=== PATIENT | female | born 1950 | race Caucasian/White ===

== ENCOUNTER → 2024-06-13 08:49 | Outpatient (REF) | payer OTHER, SELFPAY | LOC: RAD 08:49 | PROVIDERS: ATTENDING PHYSICIAN Internal Medicine Pulmonary Disease; FAMILY PHYSICIAN Family Medicine | DX: J43.9 Emphysema, unspecified (principal) | CPT/HCPCS: 71250 ==

== ENCOUNTER 2024-09-24 19:51 | Observation (INO) | payer OTHER, SELFPAY ==
[2024-09-24] VITALS (8 sets, daily range): BP systolic 104–157; BP diastolic 63–101; BMI 21.1; BMI 22.4
[2024-09-24 15:09] LABS: % Basophils 1.1 % (0-2); % Eosinophils 5.5 % (0-6); % Immature Granulocytes 0.4 % (0-0.5); % Lymphocytes 18.1 % (20.5-51.1); % Monocytes 10.4 % (1.7-9.3); % Neutrophils 64.5 % (42.2-75.2); Absolute Basophils 0.1 10^3/uL (0-0.2); Absolute Eosinophils 0.4 10^3/uL (0-0.7); Absolute Lymphocytes 1.4 10^3/uL (1.2-3.4); Absolute Monocytes 0.8 10^3/uL (0.1-0.6); Absolute Neutrophils 4.9 10^3/uL (1.4-6.5); Hematocrit 34.6 % (37.0-47.0); Hemoglobin 10.5 g/dL (12.0-16.0); Mean Corp Hgb Conc. 30.3 g/dL (33.0-37.0); Mean Corpuscular Hgb 24.9 pg (27.0-31.0); Mean Platelet Volume 9.4 fL (7.4-10.4); Nucleated Red Blood Cells % 0 %; Platelet Count 446 10^3/uL (130-400); Red Blood Cell Count 4.22 10^6/uL (4.20-5.40); Red Cell Dist. Width 18.6 % (11.5-14.5); White Blood Cell Count 7.6 10^3/uL (4.8-10.8)
[2024-09-24 15:19] LABS: ALT (SGPT) 26 U/L (0-35); AST (SGOT) 41 U/L (14-36); Albumin 4.7 g/dl (3.5-5.0); Alkaline Phosphatase 78 U/L (38-126); Blood Urea Nitrogen 24 mg/dl (7-17); Calcium 9.7 mg/dl (8.4-10.2); Carbon Dioxide 22 mmol/L (22-30); Chloride 95 mmol/L (98-107); Glucose 121 mg/dl (70-99); Potassium 3.7 mmol/L (3.5-5.1); Sodium 129 mmol/L (135-145); Total Bilirubin 0.6 mg/dl (0.2-1.3); Total Protein 7.7 g/dl (6.3-8.2); eGFR > 60.00
[2024-09-24 15:31] LABS: Troponin I < 0.012 ng/ml
--- NOTE | 2024-09-24 16:12 | ED.GENMED ---
History of Present Illness
General
Chief Complaint: Breathing Problem
Source: patient and family
Exam Limitations: none
Time Seen by Provider: 09/24/24 15:29
Nursing documentation reviewed up to this point in time: agreed with
History of Present Illness
History of Present Illness:
Patient with history of COPD, who currently utilizes oxygen at bedtime only, presents to ED secondary to increased cough with worsening shortness of breath over the past 1 week. Patient was evaluated at primary care's office today where she was
found to be acutely short of breath with pulse ox in 70s. Subsequently, patient referred to ED for an evaluation. Denies fever or chills. Denies chest pain. Denies back pain. Denies leg pain or swelling. Denies nausea, vomiting, or diarrhea.
Patient does also report decreased appetite. Patient who has been recommended to use inhaler/nebulizer at home, has not been treating herself on a regular basis.
Past History
Past History
ED Past Medical History: Other (bronchitis)
ED Past Surgical History: None
Social History
Tobacco: Former smoker
Review of Systems
Review of Systems
Allergies reviewed?: Yes
All Other Systems: ROS reviewed and negative except as documented in HPI and ROS
Constitutional: Reports no symptoms; Denies fever or chills
Respiratory: Reports cough and trouble breathing
Cardiac: Reports no symptoms; Denies chest pain
ABD/GI: Reports no symptoms; Denies vomiting or diarrhea
Musculoskeletal: Reports no symptoms
Skin: Reports no symptoms
Neurological: Reports no symptoms
Phy Exam
Physical Exam
Physical Exam:
Physical Exam
General: mild respiratory distress, not acutely ill. afebrile
Head: nc/at. eomi
Neck: supple. normal range of motion.
Heart: s1/s2 regular rate and rhythm, no murmur. equal radial pulses.
Lungs: mild respiratory distress. expiratory wheezing bilaterally
Abdomen: normal bowel sounds. not tender.
Neuro: alert and oriented. no focal neurological deficits
Skin: no rash
Psychiatric: well kept. interactive and cooperative
Extremities: no edema. no calf tenderness.
Scores
Heart Failure Risk
Heart Failure Risk Score: Not Applicable
Course
Orders/Labs/Results
Orders:
Orders
09/24/24 14:38
Electrocardiogram (*1) Urgent
Reason for Study: Shortness of Breath
EKG- Treatment ONCE
Chest [CR Chest - 2 Views ] Urgent
Comment:
Reason For Exam: SOB
09/24/24 14:47
Complete Blood Count/With Diff Urgent
Comprehensive Metabolic Panel Urgent
Troponin I Urgent
09/24/24 15:37
0.9% Sodium Chloride 500 ml [Nss] 500 ml IV BOLUS
Albuterol Nebs [Ventolin Nebules] 2.5 mg INH R NOW STA
Dexamethasone Sod Phosphate [Decadron] 6 mg IV NOW STA
Ipratropium/Albuterol Sulfate [Duoneb] 3 ml INH R NOW STA
09/24/24 15:58
COVID-19 Antigen Urgent
Source: Nasal Swab
Influenza A+B Rapid Molecular Urgent
JAYASHREE Source: Nasal Swab
Specimen Description:
09/24/24 16:01
Respiratory Syncytial Virus Urgent
JAYASHREE Source: Nasal Swab
Specimen Description:
Date Specimen was Collected: 09/24/24
Time Specimen was Collected: 16:00
09/24/24 17:38
Ipratropium/Albuterol Sulfate [Duoneb] 3 ml .ROUTE .STK-MED ONE
09/24/24 17:41
Albuterol Nebs [Ventolin Nebules] 2.5 mg .ROUTE .STK-MED ONE
09/24/24 18:35
Urinalysis Reflex To Culture Urgent
Date Specimen was Collected: 09/24/24
Time Specimen was Collected: 19:56
09/24/24 19:24
Admit/Transfer Patient As Directed
Co-Sign Provider:
Level of Care: Observation services
Assign to:: Telemetry
Physician / Group: hospitalist
Diagnosis: hypoxia
Reason for Telemetry: Other
Other Reason for Telemetry: tachycardia
Date to Stop Telemetry: 09/26/24
Time to Stop Telemetry: 11:00
PRN Pain Medication Management As Directed
May give lesser potent ordered pain med per pt: Yes
preference::
Protocol:: Medication orders for pain may be administered in a
manner that supports deferring to patient preference
when the pt is:
- Requesting an ordered lesser potent pain medication.
Least to most potent pain medications are defined
as: acetaminophen < NSAID < tramadol < opioids
(morphine, oxycodone, hydromorphone).
- Requesting a lesser dose of the same medication IF
ORDERED.
- Requesting a less intrusive route of administration
if both routes are prescribed by the provider (PO <
IV).
09/24/24 19:25
Code Status As Directed
Resuscitation Status: Full Code
09/26/24 11:00
DC Protocol for Telemetry ONCE
Abnormal Lab Results
09/24/24
14:47
Hgb 10.5 L g/dL
(12.0-16.0)
Hct 34.6 L %
(37.0-47.0)
MCH 24.9 L pg
(27.0-31.0)
MCHC 30.3 L g/dL
(33.0-37.0)
RDW 18.6 H %
(11.5-14.5)
Plt Count 446 H 10^3/uL
(130-400)
Absolute Monos (auto) 0.8 H 10^3/uL
(0.1-0.6)
Lymphocytes % 18.1 L %
(20.5-51.1)
Monocytes % 10.4 H %
(1.7-9.3)
Sodium 129 L mmol/L
(135-145)
Chloride 95 L mmol/L
(98-107)
BUN 24 H mg/dl
(7-17)
Glucose 121 H mg/dl
(70-99)
AST 41 H U/L
(14-36)
09/24/24 14:47
09/24/24 14:47
Vital Signs
Initial and Last Documented VS:
Initial Vital Signs
Temp Pulse Resp BP Pulse Ox
99.2 F 134 18 146/63 97
09/24/24 14:34 09/24/24 14:34 09/24/24 14:34 09/24/24 14:34 09/24/24 14:34
Last Documented Vital Signs
Temp Pulse Resp BP Pulse Ox
99.2 F 103 21 157/82 98
09/24/24 14:34 09/24/24 17:45 09/24/24 17:45 09/24/24 17:26 09/24/24 17:45
MDM/Problems Addressed
MDM/Problems Addressed:
History and exam consistent with likely COPD exacerbation, along with mild dehydration, as evidenced by lack of oral intake and hyponatremia noted on blood work. As such, patient will be admitted for further evaluation treatment, including
continual nebulizer treatment, IV steroids, and IV fluids.
*Critical Care Note
Total Time (30-74mins, 75-104mins- exclusive of procedures): Not Applicable
ED Attending Note
-
Portions of this chart may have been created with voice recognition software.� Occasional wrong word or��sound alike� substitutions may have occurred due to the inherent limitations of voice recognition software.
Discharge Plan
Departure
Patient Disposition: Admit
Date of Disposition: 09/24/24
Time of Disposition: 18:05
Admit to: Telemetry
Presentation/result/management discussed w/ accepting MD/DO: Hospitalist
Discharge Problem:
Hypoxia, COPD exacerbation, Hyponatremia
Interventions
Interventions:
*Risk Screen - Suicide Last Done: 09/24/24 14:34
*General Assessment Last Done: 09/24/24 14:34
*Neglect/Abuse Screening Last Done: 09/24/24 14:34
ED- Cardiac Assessment Last Done: 09/24/24 16:13
ED- Pulmonary Assessment Last Done: 09/24/24 16:30
[2024-09-24] MEDS: NSS 500 IV (16:30)
[2024-09-24] MEDS: DECADRON 6 MG IV (16:31)
[2024-09-24 16:39] LABS: COVID-19 Antigen Negative (Negative)
[2024-09-24] MEDS: DUONEB 3 ML INH (17:41)
[2024-09-24] MEDS: VENTOLIN NEBULES 2.5 MG INH (17:41)
--- NOTE | 2024-09-24 19:10 | HPS.HSE ---
Family Physician
-
Family Physician: Zhanna Ricks
Chief Complaint
-
Hypoxia
History of Present Illness
This is a 74 y.o female with past medical history of COPD on intermittent oxygen will use it only at bedtime presenting to the emergency department with shortness of breath over the last 1 week.
Was seen at primary care's office today when she was found to be acutely short of breath and hypoxic to the 70s on room air. Patient herself reports that this does not feel like a typical exacerbation of COPD. She reports that she has not had any
significant productive cough. She denies wheezing. Family says that she had improved since getting nebs in the ED. Patient denies any fevers or chills. She denies any recent sick contacts or travel. She has no vomiting or diarrhea. She denies
having any chest pain. She denies orthopnea or PND. She has no lower extremity swelling. She denies any pleuritic chest pain. She denies feeling lightheaded or dizzy.
Family reports history of worsening memory issues over the last 2 months. Spouse specifically states the patient has been forgetting. He has a repeat himself several times to her. She self verified status. No behavioral changes but did note that
her appetite has decreased significantly and she has very minimal p.o. intake. Currently denies any smoking.
In the emergency department she was afebrile, she was satting 98% on 3 L. Blood pressure was 157/82 with a pulse of 103. Troponin was negative. ECG showed sinus tachycardia at 131. Chest x-ray shows no acute infiltrates and was consistent with
COPD without any additional findings. COVID test was negative. Influenza was negative. CBC was mostly unremarkable with a hemoglobin of 10.5. Electrolytes was notable for a sodium of 129. The rest of the electrolytes BUN/creatinine were within
normal limits.
Medical History
Past Medical History
Past Medical History: Reports COPD, GERD and HTN
Past Surgical History: Reports None
Social History
Tobacco: Former Smoker
Alcohol: None
Drug: None
Personal:
Living: With Family
Employment: Not Employed
Family History
Family History: Not pertinent
Allergies / Home Medications
Allergies reflects when Allergies were last updated in [employer].
Home Medications with original date entered in [employer]
Allergy/Medication List:
Allergies
Allergy/AdvReac Type Severity Reaction Status Date / Time
latex Allergy Unknown Rash Verified 09/24/24 14:33
Penicillins Allergy Hives/rash/ Verified 09/24/24 14:33
SOB
Sulfa (Sulfonamide Allergy Hives/itchi Verified 09/24/24 14:33
Antibiotics) ng/SOB
vancomycin [Vancomycin] Allergy Rash Verified 09/24/24 14:33
Home Medications
alprazolam 1 mg tablet 1 mg PO BIDPRN PRN anxiety 04/27/12
omeprazole 20 mg capsule,delayed release 20 mg PO DAILY 04/27/12
aspirin 81 mg tablet,delayed release 81 mg PO DAILY 04/28/12
amlodipine 2.5 mg tablet 2.5 mg PO DAILY 09/24/24
atorvastatin 20 mg tablet 20 mg PO DAILY 09/24/24
citalopram 10 mg tablet 10 mg PO DAILY 09/24/24
denosumab 60 mg/mL subcutaneous syringe (Prolia) 60 mg SC [id number] 09/24/24
fluticasone fur. 200 mcg-umeclid 62.5 mcg-vilant 25 mcg inhalat.powder (Trelegy Ellipta) 1 inh inhalation R DAILY 09/24/24
immun glob G 4 gram/20 mL (20 %)-prol-IgA 0-50 mcg/mL subcutaneous syr (Hizentra) 0 mg SC FR 09/24/24
ipratropium bromide 0.02 % solution for inhalation 2.5 ml inhalation R Q6HPRN PRN sob 09/24/24
lisinopril 40 mg tablet 40 mg PO DAILY 09/24/24
Review of Systems
-
History Source: Patient and Family
Constitutional: Reports No Symptoms
EENT: Reports No Symptoms
Respiratory: Reports Trouble Breathing
Cardiac: Reports No Symptoms
Abdomen/GI: Reports No Symptoms
: Reports No Symptoms
Musculoskeletal: Reports No Symptoms
Skin: Reports No Symptoms
Neurological: Reports No Symptoms
Endocrine: Reports No Symptoms
Hematologic/Lymphatic: Reports No Symptoms
Psych: Reports No Symptoms
Physical Exam
Vital Signs
Vital Signs
Temp Pulse Resp BP Pulse Ox
99.2 F 103 21 157/82 98
09/24/24 14:34 09/24/24 17:45 09/24/24 17:45 09/24/24 17:26 09/24/24 17:45
Physical Exam
General: Well Developed, Well Nourished, Comfortable and Respiratory Distress
HEENT: NormoCephalic, Anicteric, Moist mucous membranes and Atraumatic
Respiratory: Clear, Accessory Resp Muscle Use and Decreased Breath Sounds
Cardiac: S1/S2, Regular Rhythm and Tachycardia
Breast: Deferred by me
GI: Soft, Non Tender, Non Distended and Normal Bowel Sounds
Rectal: Deferred by Provider
Genito-urinary: Deferred by me
Musculoskeletal: No Clubbing, No Cyanosis and No Edema
Skin: Warm
Neuro: AO x 3
Hematologic/Lymphatic: No Lymphadenopathy
Psych: Calm
Laboratory Results
-
09/24/24 14:47
09/24/24 14:47
Laboratory Results
Total Bilirubin 0.6 mg/dl (0.2-1.3) 09/24/24 14:47
AST 41 U/L (14-36) H 09/24/24 14:47
ALT 26 U/L (0-35) 09/24/24 14:47
Alkaline Phosphatase 78 U/L (38-126) 09/24/24 14:47
Troponin I < 0.012 ng/ml 09/24/24 14:47
Data Reviewed
-
Diagnostic Radiology: Image Personally Visualized and interpreted and Report Reviewed by me
Medical Tests (Nuc Med, Echo, EKG etc): Image Personally Visualized and interpreted
Lab Data: Labs Reviewed by me
Old Records: Reviewed
Impression/Plan
-
IMPRESSION:
74-year-old female with history of COPD on nocturnal O2 presenting to the emergency department with hypoxia, hyponatremia and subacute memory decline.
PLAN:
1. SOB - Emphysema, COPD exacerbation versus PE. No productive cough. Negative viral panel. Was not wheezing when I saw her. No evidence of heart failure.
- admit to telemetry
- course of prednisone taper starting at 60 mg daily
- duonebs RTC and prn for now
- continue home inhalers
- check lower extremity u/s and d-dimer
2. Hyponatremia - Na 129. BUN/Cr ok. Family reports significant decrease in po intake
- suspect hypovolemic hyponatremia, check urine sodium and osms
- IV fluids overnight for now
- check tsh and am cortisol
- orthostatics
3.Subacute dementia/memory difficulties
- check tsh, b12, folate, rpr
- CT head w/o contrast for subacute strokes
- check u/a
- hydrate
DVT PPX - lovenox sq
Full Code
[2024-09-24 20:20] LABS: Urine Albumin Trace (Neg - Trace); Urine Bilirubin Negative (Negative); Urine Character Clear (Clear); Urine Color Yellow; Urine Glucose Negative (Negative); Urine Ketone 3+ (Negative); Urine Leukocyte Trace (Negative); Urine Nitrite Negative (Negative); Urine Occult Blood Negative (Negative); Urine Urobilinogen Negative (Neg - 1+)
--- NOTE | 2024-09-24 20:45 | PTCARENOTE ---
Pt arrived onto floor @2044. Pt AAOx3 and able to walk into room w/ minimal assistance. Pt with no complaints of pain or SOB at this time. Pt oriented to room and call li; will continue to monitor
[2024-09-24 20:52] LABS: Urine Mucus Moderate; Urine Squamous Cell 0-2 /LPF (Few)
[2024-09-24 20:53] LABS: Urine Red Blood Cell 0-2 /HPF (0-2)
[2024-09-24] MEDS: DUONEB INH (21:17)
[2024-09-24] MEDS: MUCINEX 600 MG PO (21:56)
[2024-09-24] MEDS: NSS 1000 IV (21:56)
[2024-09-24] MEDS: XANAX 1 MG PO (23:22)
[2024-09-25 03:31] VITALS: BP 111/57
[2024-09-25 07:15] VITALS: BP 134/66
[2024-09-25] MEDS: DUONEB 3 ML INH ×2 (07:15→11:28)
[2024-09-25 07:43] LABS: Osmolality Urine 405 mOsm/kg (300-900); Urine Sodium 53 mmol/L (30-90)
[2024-09-25] MEDS: PROTONIX 40 MG PO (08:50)
[2024-09-25] MEDS: NORVASC 2.5 MG PO (08:50)
[2024-09-25] MEDS: ASPIR LOW (ENTERIC COATED) 81 MG PO (08:50)
[2024-09-25] MEDS: LIPITOR 20 MG PO (08:50)
[2024-09-25] MEDS: MUCINEX 600 MG PO (08:50)
[2024-09-25] MEDS: DELTASONE 50 MG PO (08:50)
[2024-09-25] MEDS: CELEXA 10 MG PO (08:50)
[2024-09-25] MEDS: ZESTRIL 40 MG PO (08:50)
[2024-09-25 08:55] LABS: Blood Urea Nitrogen 15 mg/dl (7-17); Calcium 8.9 mg/dl (8.4-10.2); Carbon Dioxide 23 mmol/L (22-30); Chloride 99 mmol/L (98-107); Estimated Creatinine Clearance 63 ml/min; Glucose 98 mg/dl (70-99); Potassium 4.5 mmol/L (3.5-5.1); Sodium 130 mmol/L (135-145); eGFR > 60.00
[2024-09-25 09:20] LABS: Cortisol, Random 1.5 ug/dl; TSH Reflex To Free T4 0.32 uIU/ml (0.47-4.68)
[2024-09-25 09:46] LABS: Free T4 1.43 ng/dl (0.78-2.19)
[2024-09-25 09:47] VITALS: BMI 22.4
[2024-09-25 09:55] LABS: Folate 11.9 ng/ml (2.76-20); Vitamin B12 891 pg/ml (239-931)
[2024-09-25 10:50] VITALS: BP 116/71; BP 123/66; BP 129/69; PULSE 96; PULSE 98
[2024-09-25 11:15] VITALS: BP 116/52
--- NOTE | 2024-09-25 11:50 | W.PN.HOSP.TC ---
Today's Communication/Plan
-
follow up home O2 testing - possible DC
Assessment / Plan
Assessment / Plan
74-year-old female with history of COPD on nocturnal O2 presenting to the emergency department with hypoxia, hyponatremia and subacute memory decline.
Head CT
IMPRESSION:
There are no acute intracranial abnormalities.
There is moderate diffuse cortical atrophy with extensive nonspecific white matter changes as described above.
PLAN:
1. SOB
Acute COPD exacerbation
- admit to telemetry
- d-dimer negative for patient's age adjustment, LE US neg for DVT and patient's symptoms much improved today post steroids and inhalers - therefore not concerned for PE
- course of prednisone taper starting at 60 mg daily --> DC on 4 more days 40mg daily then stop given quick response
- duonebs RTC and prn for now
- continue home inhalers
- OK for DC post home O2 testing
2. Hyponatremia - Na 129. BUN/Cr ok. Family reports significant decrease in po intake
- suspect hypovolemic hyponatremia, check urine sodium and osms
- IV fluids overnight for now
- TSH and cortisol checked while patient on steroids therefore likely inaccurate - will need to recheck as outpatient
- orthostatics
3.Subacute dementia/memory difficulties
- will need to recheck TSH and cortisol when off steorids
- CT head w/o contrast for subacute strokes
- UA without e/o infection
- hydrate
DVT PPX - lovenox sq
Full Code
Anticipated Discharge: Within 24 hours
Subjective/Interval History
-
Date of Service: September 25, 2024
feeling much better today
per family she is less confused
Objective Data
-
Labs:
Laboratory Results
09/25/24
07:39
Sodium 130 L
Potassium 4.5
Chloride 99
Carbon Dioxide 23
BUN 15
Creatinine 0.5 L
Glucose 98
Calcium 8.9
Vital Signs:
Vital Signs
Temp Pulse Resp BP Pulse Ox
97.2 F 88 14 134/66 100
09/25/24 07:15 09/25/24 07:21 09/25/24 07:21 09/25/24 07:15 09/25/24 07:21
I&O
09/24/24 09/25/24 09/26/24
06:59 06:59 06:59
Intake Total 500 / 500
Balance 500 / 500
Review of Systems
-
History Source: Patient
All other systems: Reviewed and negative
Physical Exam
-
General: No Apparent Distress
HEENT: PERRLA
Respiratory: Wheezes (very mild end expiratory)
Cardiac: Regular Rhythm and S1/S2
GI: Soft and Nontender
Musculoskeletal: No Edema
Skin: Warm and Dry; Negative Rash
Neuro: AO x 3
Psych: Calm
Data Reviewed
-
Diagnostic Radiology: Report Reviewed by me
Labs: Labs Reviewed by me
--- NOTE | 2024-09-25 13:57 | W.DS.TRANS ---
DC Summary - Unattended Ground Sensor Specialist
-
Discharge Instructions:
Discharge Diagnosis/Procedures COPD Exacerbation
Diet Regular
Activity As tolerated
Driving Restrictions As prior to admission
Bathing Restrictions None
Others Tests Please follow up with your PCP. After you
complete your steroid course, your PCP can
obtain repeat TSH (thyroid) and morning Cortisol
testing.
Instructions:
Stand-Alone Forms:
Changes to Home Medications: Yes
Discharge Medications:
DC Medications w/original date entered in [facility]
alprazolam 1 mg tablet 1 mg PO BIDPRN PRN anxiety 04/27/12
omeprazole 20 mg capsule,delayed release 20 mg PO DAILY Gastrointestinal Issue 04/27/12
aspirin 81 mg tablet,delayed release 81 mg PO DAILY Blood Clot Prevention/Tx 04/28/12
amlodipine 2.5 mg tablet 2.5 mg PO DAILY Blood Pressure 09/24/24
atorvastatin 20 mg tablet 20 mg PO DAILY 09/24/24
citalopram 10 mg tablet 10 mg PO DAILY Mental Health/Anxiety 09/24/24
denosumab 60 mg/mL subcutaneous syringe (Prolia) 60 mg SC [id number] 09/24/24
fluticasone fur. 200 mcg-umeclid 62.5 mcg-vilant 25 mcg inhalat.powder (Trelegy Ellipta) 1 inh inhalation R DAILY Lung/Breathing Issues 09/24/24
immun glob G 4 gram/20 mL (20 %)-prol-IgA 0-50 mcg/mL subcutaneous syr (Hizentra) 0 mg SC FR 09/24/24
ipratropium bromide 0.02 % solution for inhalation 2.5 ml inhalation R Q6HPRN PRN sob 09/24/24
lisinopril 40 mg tablet 40 mg PO DAILY Blood Pressure 09/24/24
prednisone 20 mg tablet 40 mg (2 x 20 mg) PO DAILY 4 days #8 tabs 09/25/24
Home Medication Changes
4 more days of Prednisone 40mg
Pending Results: No
--- NOTE | 2024-09-25 13:59 | CM ---
campus manager reviewed patient's chart and patient was admitted under OBS, CASEY letter provided to patient and signed, patient lives with spouse in a one story home, patient is independent with adl's and ambulation, patient with COPD and uses
nocturnal oxygen at home.
PCP: Zhanna Ricks
Pharmacy: [facility] [place]
Plan; Home no needs.
[2024-09-25] MEDS: DUONEB INH (14:16)
--- NOTE | 2024-09-25 15:30 | W.DCSUMMARY ---
Discharge Summary
Discharge Data
Date of Admission: 09/24/24
Date of Discharge: 09/25/24
-
Pending Results: No
Hospital Course
Discharging Physician : Dr. Gloria Galvez
Disposition : Home
Primary care physician : Dr. Zhanna Ricks
Principal Discharge diagnosis : COPD Exacerbation
Hospital Course :
Ms. Shelley Zazueta is a 74-year-old female with history of COPD on nocturnal O2 presenting to the emergency department with shortness of breath and confusion per family. Triage vitals signficant for tachycardia. CXR without acute disease. Exam with
expiratory wheezing. She was admitted for acute COPD Exacerbation and started on steroids and nebulizers.
Overnight patient's symptoms were much improved and she felt ready for discharge. Did not need oxygen with ambulation. She is discharged on 4 more days of Prednisone 40mg. Continue home inhalers and follow up closely as outpatient.
Regarding confusion, head CT with findings of diffuse atrophy and extensive nonspecific white matter changes. TSH needs to be repeated off steroids, free T4 WNL. Vitamin B12 WNL. Per family, confusion much improved on hospital day 1. Patient
likely had TME in setting of COPD exacerbation.
Regarding hyponatremia, improved to 130 with IVF. 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 She was educated on importance of avoiding high amounts of free water. TSH and AM Cortisol to be repeated when patient off steroids.
Patient was called post discharge to discuss repeat labs to be ordered by PCP next week to monitor sodium levels.
Time spent on discharge was 32 minutes.
Important imaging findings :
CXR
IMPRESSION:
Chronic obstructive pulmonary disease
No superimposed acute abnormalities
Head CT
IMPRESSION:
There are no acute intracranial abnormalities.
There is moderate diffuse cortical atrophy with extensive nonspecific white matter changes as described above.
Procedure findings :
Discharge Plan
-
Patient Disposition: Home (Routine Discharge)
Discharge Diagnosis/Procedures: COPD Exacerbation
Diet: Regular
Activity: As tolerated
Driving Restrictions: As prior to admission
Bathing Restrictions: None
Others Tests: Please follow up with your PCP. After you complete your steroid course, your PCP can obtain repeat TSH (thyroid) and morning Cortisol testing.
Referrals:
Zhanna Ricks, DO [Family Provider] - in less than 1 week
Prescriptions:
New
prednisone 20 mg tablet
40 mg PO DAILY 4 Days Qty: 8 0RF
Continued
alprazolam 1 MG tablet
1 mg PO BIDPRN PRN (Reason: anxiety)
omeprazole 20 MG capsule,delayed release(DR/EC)
20 mg PO DAILY
aspirin 81 MG tablet,delayed release (DR/EC)
81 mg PO DAILY
atorvastatin 20 mg Tablet
20 mg PO DAILY
citalopram 10 mg Tablet
10 mg PO DAILY
amlodipine 2.5 mg Tablet
2.5 mg PO DAILY
lisinopril 40 mg Tablet
40 mg PO DAILY
ipratropium bromide 0.02 % Solution
2.5 ml INHALATION R Q6HPRN PRN (Reason: sob)
Prolia 60 mg/mL Syringe
60 mg SC [id number]
Hizentra 4 gram/20 mL (20 %) Syringe
0 mg SC FR
Trelegy Ellipta 200-62.5-25 mcg Blister With Device
1 inh INHALATION R DAILY
Discharge Orders:
Discharge Patient (As Directed); Ordered 09/25/24
Ordered By: Gloria Galvez
Discharge Date and Time
Discharge Date/Time: 09/25/24 14:36
Print Language: AMHARIC
[2024-09-25 15:48] LABS: Syphilis/T. pallidum Ab Reflex Negative (Negative)
== END 2024-09-25 14:36 | disposition home or self-care (01) ==
LOC: 4 WEST ACU 19:51
PROVIDERS: ADMITTING PHYSICIAN Internal Medicine; ATTENDING PHYSICIAN Student in an Organized Health Care Education/Training Program; EMERGENCY PHYSICIAN Emergency Medicine; FAMILY PHYSICIAN Family Medicine
DX: J43.9 Emphysema, unspecified (principal); R06.02 Shortness of breath; R05.9 Cough, unspecified; R09.02 Hypoxemia; R00.0 Tachycardia, unspecified; E86.0 Dehydration; F03.90 Unspecified dementia, unspecified severity, without behavioral disturbance, psychotic disturbance, mood disturbance, and anxiety; J98.4 Other disorders of lung; E87.1 Hypo-osmolality and hyponatremia; I11.9 Hypertensive heart disease without heart failure; K21.9 Gastro-esophageal reflux disease without esophagitis; Z91.040 Latex allergy status; Z88.2 Allergy status to sulfonamides; Z88.1 Allergy status to other antibiotic agents; Z88.0 Allergy status to penicillin; Z87.891 Personal history of nicotine dependence; Z79.82 Long term (current) use of aspirin; Z11.52 Encounter for screening for COVID-19
CPT/HCPCS: 70450; 71046; 80048; 80053; 81003; 81015; 82533; 82607; 82746; 83935; 84300; 84439; 84443; 84484; 85025; 85379; 86780; 87502; 87807; 87811; 93005; 93970; 94640; 96374; 99285; G0378

== ENCOUNTER → 2024-10-28 08:14 | Outpatient (REF) | payer OTHER, SELFPAY | LOC: MRI 08:14 | PROVIDERS: ATTENDING PHYSICIAN Physician Assistant Medical | DX: R90.82 White matter disease, unspecified (principal); R41.3 Other amnesia | CPT/HCPCS: 70551 ==

== ENCOUNTER → 2024-11-25 07:43 | Outpatient (REF) | payer OTHER, SELFPAY | LOC: MRI 07:43 | PROVIDERS: ATTENDING PHYSICIAN Psychiatry & Neurology Neurology; FAMILY PHYSICIAN Family Medicine | DX: R90.82 White matter disease, unspecified (principal) | CPT/HCPCS: 70553; A9575 ==

== ENCOUNTER 2024-12-20 19:05 | Inpatient (IN) | payer OTHER, SELFPAY ==
[2024-12-20 15:37] VITALS: BP 115/73
--- NOTE | 2024-12-20 16:09 | ED.GENMED ---
History of Present Illness
General
Chief Complaint: Change in Mental Status
Source: patient and spouse
Exam Limitations: none
Time Seen by Provider: 12/20/24 15:49
Nursing documentation reviewed up to this point in time: agreed with
History of Present Illness
History of Present Illness:
Patient to ED at request of her [place] bar roller for ABG, eval of increasing confusing. states she has been increasingly SOB x 1 mos. Tuesday she was seen by her bar roller and placed on Prednisone taper. SHe is currently taking 40mg
daily and reports no improvement. She spoke with pulmonology office this AM and they were concered that she was confused. Requested bring her to ED for ABG. History of COPD. Was using home O2 at 2L only at night but for the past month
she has been using O2 24/7 but now at 4.5L. She denies fever/chills, recent illness. No change in cough. Diminished ADL tolerance. On exam she is alert and oriented x 3, confirms that she is not confused at this time. He agrees that she
has been more forgetful over the past month, needs frequent reminders.
Past History
Past History
ED Past Medical History: COPD, GERD, HTN, Hypercholesterolemia, Psychiatric (anxiety) and Other (bronchitis)
ED Past Surgical History: None
Social History
Tobacco: Former smoker
Review of Systems
Review of Systems
All Other Systems: ROS reviewed and negative except as documented in HPI and ROS
Constitutional: Reports no symptoms
EENT: Reports no symptoms
Respiratory: Reports trouble breathing
Cardiac: Reports no symptoms
ABD/GI: Reports no symptoms
Musculoskeletal: Reports no symptoms
Skin: Reports no symptoms
Neurological: Reports other (forgetful, periods of confusion)
Psychiatric: Reports no symptoms
Phy Exam
General Physical Exam
General Presentation: mild distress
General age: appears stated age
General Skin: warm and dry
General Habitus: normal
General Mental: alert
Cardiovascular Exam
Cardiovascular Exam: regular rate/rhythm and no edema
Pulmonary Exam
Pulmonary Exam: decreased breath sounds
Oxygen Status: oxygen 2 liters via NC (95%)
Musculoskeletal Exam
Musculoskeletal Exam: full ROM and neuro vasc intact
Skin Exam
Skin Exam: normal color, warm/dry and no rash
Psychiatric Exam
Psychiatric Exam: normal mood/affect
Course
Orders/Labs/Results
Orders:
Orders
12/20/24 Breakfast
Cholesterol Lowering
At Your Request: Full Participation
Cholesterol Lowering: Sodium, 2 Gram
12/20/24 16:09
CR Chest - 2 Views Urgent
Comment:
Reason For Exam: SOB
12/20/24 16:34
Arterial Blood Gas Urgent
%Oxygen/Room Air: Roomm air
Complete Blood Count/With Diff Urgent
Comprehensive Metabolic Panel Urgent
12/20/24 18:02
Dexamethasone Sod Phosphate [Decadron] 10 mg IV NOW STA
Ipratropium/Albuterol Sulfate [Duoneb] 3 ml INH R NOW STA
12/20/24 18:05
CT Head W/o Iv Contrast Urgent
Comment:
Reason For Exam: confusion
12/20/24 18:39
Admit/Transfer Patient As Directed
Co-Sign Provider:
Level of Care: Inpatient admission
Assign to:: Telemetry
Physician / Group: ilsa
Diagnosis: COPD exacerbation
Reason for Telemetry: Other
Other Reason for Telemetry: hyperkalemia
Date to Stop Telemetry: 12/22/24
Time to Stop Telemetry: 11:00
Reason for Hospitalization: COPD exacerbation
Expected length of stay greater than two midnights?: Yes
ELOS- Estimated Length of Stay in days: 3
I certify the patient meets the requirements for IP care: Yes
PRN Pain Medication Management As Directed
May give lesser potent ordered pain med per pt: Yes
preference::
Protocol:: Medication orders for pain may be administered in a
manner that supports deferring to patient preference
when the pt is:
- Requesting an ordered lesser potent pain medication.
Least to most potent pain medications are defined
as: acetaminophen < NSAID < tramadol < opioids
(morphine, oxycodone, hydromorphone).
- Requesting a lesser dose of the same medication IF
ORDERED.
- Requesting a less intrusive route of administration
if both routes are prescribed by the provider (PO <
IV).
12/20/24 18:40
Code Status As Directed
Resuscitation Status: Full Code
12/20/24 18:41
Urinalysis Reflex To Culture Urgent
Date Specimen was Collected: 12/20/24
Time Specimen was Collected: 16:16
12/20/24 20:39
Acetaminophen [Tylenol] 650 mg PO Q4HPRN PRN
Alprazolam [Xanax] 1 mg PO BIDPRN PRN
Ipratropium/Albuterol Sulfate [Duoneb] 3 ml INH R Q4HPRN PRN
Ipratropium/Albuterol Sulfate [Duoneb] 3 ml INH R QID
wdigdpyixva-ehoraulev-tebeuuxk [Trelegy Ellipta] 1 inh INH R DAILYPRN PRN
12/20/24 20:39
EKG [Electrocardiogram (*1)] Routine
Reason for Study: Other
Other Reason for Exam: hyperkalemia
Activity As Directed
Activity Level: As Tolerated
Intake/ Output As Directed
Frequency: Per unit guidelines
Vital Signs As Directed
Frequency: Per unit guidelines
Copd Education [RESP] Routine
DX Deep Vein Thrombosis Video Routine
12/21/24 06:00
Basic Metabolic Panel IN AM
Complete Blood Count/With Diff IN AM
Dexamethasone Sod Phosphate [Decadron] 4 mg IV Q12H
12/21/24 08:00
Amlodipine [Norvasc] 2.5 mg PO DAILY
Aspirin Low Dose EC [Aspir Low (Enteric Coated)] 81 mg PO DAILY
Atorvastatin [Lipitor] 20 mg PO DAILY
Citalopram [Celexa] 10 mg PO DAILY
Pantoprazole [Protonix] 40 mg PO DAILY
12/21/24 18:00
Enoxaparin Sodium [Lovenox] 40 mg SC QPM
12/22/24 06:00
Basic Metabolic Panel IN AM
Complete Blood Count/With Diff IN AM
12/22/24 11:00
DC Protocol for Telemetry ONCE
12/23/24 06:00
Basic Metabolic Panel IN AM
Complete Blood Count/With Diff IN AM
12/24/24 06:00
Basic Metabolic Panel IN AM
Complete Blood Count/With Diff IN AM
Abnormal Lab Results
12/20/24
16:34
WBC 3.9 L 10^3/uL
(4.8-10.8)
RBC 4.00 L 10^6/uL
(4.20-5.40)
Hgb 10.3 L g/dL
(12.0-16.0)
Hct 32.6 L %
(37.0-47.0)
MCH 25.8 L pg
(27.0-31.0)
MCHC 31.6 L g/dL
(33.0-37.0)
RDW 18.8 H %
(11.5-14.5)
Absolute Lymphs (auto) 0.5 L 10^3/uL
(1.2-3.4)
Neutrophils % 83.9 H %
(42.2-75.2)
Lymphocytes % 12.2 L %
(20.5-51.1)
pCO2 39 H mmHg
(32-35)
pO2 67 L mmHg
(83-108)
Sodium 128 L mmol/L
(135-145)
Potassium 5.2 H mmol/L
(3.5-5.1)
Chloride 91 L mmol/L
(98-107)
Creatinine 0.4 L mg/dL
(0.6-1.0)
Glucose 166 H mg/dl
(70-99)
12/20/24 16:34
12/20/24 16:34
Vital Signs
Initial and Last Documented VS:
Initial Vital Signs
Temp Pulse Resp BP Pulse Ox
98.1 F 117 18 115/73 94
12/20/24 15:37 12/20/24 15:37 12/20/24 15:37 12/20/24 15:37 12/20/24 15:37
Last Documented Vital Signs
Temp Pulse Resp BP Pulse Ox
98.2 F 105 20 153/74 94
12/20/24 20:57 12/20/24 20:57 12/20/24 20:57 12/20/24 20:57 12/20/24 20:57
*Critical Care Note
Total Time (30-74mins, 75-104mins- exclusive of procedures): Not Applicable
Update Note
Update Note:
Patient to ED wt complaint of increasing SOB, LAMAR with minimal activity, confusion. Pulse ox 92% RA at rest. [place] 2L NC, hlding at 95%. CXR neg pneumonia. Labs reviewed, patient status reviewed with Dr. Bender. Will admit to hospitalist
service for exacerbation COPD.
ED Attending Note
-
Portions of this chart may have been created with voice recognition software.� Occasional wrong word or��sound alike� substitutions may have occurred due to the inherent limitations of voice recognition software.
Discharge Plan
Departure
Patient Disposition: Admit
Date of Disposition: 12/20/24
Time of Disposition: 18:04
Presentation/result/management discussed w/ accepting MD/DO: Hospitalist
Patient with high blood pressure during this ER visit?: No
Condition: Fair
Covid-19: Not Applicable
Discharge Problem:
Asthma exacerbation in COPD
Interventions
Interventions:
*Risk Screen - Suicide Last Done: 12/20/24 21:15
*General Assessment Last Done: 12/20/24 16:32
*Neglect/Abuse Screening Last Done: 12/20/24 15:40
*ED- Fall Risk Assessment Last Done: 12/20/24 16:32
*ED COVID-19 Vaccine History Last Done: 12/20/24 21:15
*Nursing Disposition Last Done: 12/20/24 20:35
ED- Pulmonary Assessment Last Done: 12/20/24 16:35
ED- Neurological Assessment Last Done: 12/20/24 16:35
ED- Cardiac Assessment Last Done: 12/20/24 16:35
ED Swallowing Screen Last Done: 12/20/24 16:35
Discharge Date and Time
Discharge Date/Time: 12/20/24 20:36
[2024-12-20 16:28] VITALS: BMI 19.7
[2024-12-20 16:45] LABS: B.E. 2.9 mmol/L; HCO3 27.1 mmol/L (21-28); O2 Saturation % 95.4 % (94-98); PCO2 39 mmHg (32-35); PO2 67 mmHg (83-108); pH 7.45 (7.35-7.45)
[2024-12-20 16:56] LABS: % Basophils 0.3 % (0-2); % Immature Granulocytes 0.3 % (0-0.5); % Lymphocytes 12.2 % (20.5-51.1); % Monocytes 3.3 % (1.7-9.3); % Neutrophils 83.9 % (42.2-75.2); Absolute Lymphocytes 0.5 10^3/uL (1.2-3.4); Absolute Monocytes 0.1 10^3/uL (0.1-0.6); Absolute Neutrophils 3.3 10^3/uL (1.4-6.5); Hematocrit 32.6 % (37.0-47.0); Hemoglobin 10.3 g/dL (12.0-16.0); Mean Corp Hgb Conc. 31.6 g/dL (33.0-37.0); Mean Corpuscular Hgb 25.8 pg (27.0-31.0); Mean Corpuscular Volume 81.5 fL (81.0-99.0); Mean Platelet Volume 9.5 fL (7.4-10.4); Nucleated Red Blood Cells % 0 %; Platelet Count 391 10^3/uL (130-400); Red Cell Dist. Width 18.8 % (11.5-14.5); White Blood Cell Count 3.9 10^3/uL (4.8-10.8)
[2024-12-20 17:10] LABS: ALT (SGPT) 22 U/L (0-35); AST (SGOT) 34 U/L (14-36); Albumin 4.6 g/dl (3.5-5.0); Alkaline Phosphatase 84 U/L (38-126); Blood Urea Nitrogen 15 mg/dl (7-17); Carbon Dioxide 28 mmol/L (22-30); Chloride 91 mmol/L (98-107); Estimated Creatinine Clearance 62 ml/min; Glucose 166 mg/dl (70-99); Potassium 5.2 mmol/L (3.5-5.1); Sodium 128 mmol/L (135-145); Total Bilirubin 0.5 mg/dl (0.2-1.3); Total Protein 7.8 g/dl (6.3-8.2); eGFR > 60.00
--- NOTE | 2024-12-20 18:15 | HPS.HSE ---
Family Physician
-
Family Physician:
Chief Complaint
-
sob
History of Present Illness
74-year-old with past medical history of hypertension, COPD, GERD, hyperlipidemia, pulmonary hypertension, depression, anxiety presented to us with confusion and short of breath. Patient stated worsening short of breath for past 1 month. Patient
was evaluated by pulmonology at [facility], who started her on tapering prednisone. The nurse from [facility] called her this morning to see how she was doing. The nurse thought patient was confused . So the nurse called her
and told her to take her to the ER for further evaluation. Patient stated progressively worsening short of breath for past 1 months.over the weekend it got worse. Patient was using 2.5 L of oxygen at nighttime . For past 1 month she is
using 4.5 L all the time. she was evaluated by pulmonology on Tuesday and prescribed steroids. She was feeling better on steroids , her breathing got better .patient denied any chest pain .patient denied any headache, dizzy or syncope. Patient
denied any fever or chills. Patient denied any abdominal pain, nausea, vomiting or diarrhea. Patient denied dysuria hematuria. as per , since September, patient is little forgetful and confused at times.
At present patient is oxygenating 96 on room air. Patient received IV Decadron, nebs in ER. Admitting for further management
Medical History
Past Medical History
Past Medical History: Reports Other
Additional Past Medical History:
Hypertension
COPD
GERD
Hyperlipidemia
5 pulmonary hypertension
Depression
Osteoporosis
Anxiety
Migraine
Past Surgical History: Reports Other
Additional Past Surgical History:
Appendectomy
Hysterectomy
Sinus surgery
Social History
Tobacco: Former Smoker
Alcohol: None
Drug: None
Personal:
Living: With Family
Family History
Family History: Not pertinent
Allergies / Home Medications
Allergies reflects when Allergies were last updated in [facility].
Home Medications with original date entered in [facility]
Allergy/Medication List:
Allergies
Allergy/AdvReac Type Severity Reaction Status Date / Time
latex Allergy Unknown Rash Verified 09/24/24 14:33
Penicillins Allergy Hives/rash/ Verified 09/24/24 14:33
SOB
Sulfa (Sulfonamide Allergy Hives/itchi Verified 09/24/24 14:33
Antibiotics) ng/SOB
vancomycin [Vancomycin] Allergy Rash Verified 09/24/24 14:33
Home Medications
alprazolam 1 mg tablet 1 mg PO BIDPRN PRN anxiety 04/27/12
omeprazole 20 mg capsule,delayed release 20 mg PO DAILY Gastrointestinal Issue 04/27/12
aspirin 81 mg tablet,delayed release 81 mg PO DAILY Blood Clot Prevention/Tx 04/28/12
amlodipine 2.5 mg tablet 2.5 mg PO DAILY Blood Pressure 09/24/24
atorvastatin 20 mg tablet 20 mg PO DAILY 09/24/24
citalopram 10 mg tablet 10 mg PO DAILY Mental Health/Anxiety 09/24/24
denosumab 60 mg/mL subcutaneous syringe (Prolia) 60 mg SC [id number] 09/24/24
fluticasone fur. 200 mcg-umeclid 62.5 mcg-vilant 25 mcg inhalat.powder (Trelegy Ellipta) 1 inh inhalation R DAILY Lung/Breathing Issues 09/24/24
immun glob G 4 gram/20 mL (20 %)-prol-IgA 0-50 mcg/mL subcutaneous syr (Hizentra) 0 mg SC FR 09/24/24
ipratropium bromide 0.02 % solution for inhalation 2.5 ml inhalation R Q6HPRN PRN sob 09/24/24
lisinopril 40 mg tablet 40 mg PO DAILY Blood Pressure 09/24/24
prednisone 20 mg tablet 40 mg (2 x 20 mg) PO DAILY 4 days #8 tabs 09/25/24
Review of Systems
-
Constitutional: Reports No Symptoms
EENT: Reports No Symptoms
Respiratory: Reports Trouble Breathing
Cardiac: Reports No Symptoms
Abdomen/GI: Reports No Symptoms
: Reports No Symptoms
Musculoskeletal: Reports No Symptoms
Skin: Reports No Symptoms
Neurological: Reports No Symptoms
Endocrine: Reports No Symptoms
Hematologic/Lymphatic: Reports No Symptoms
Psych: Reports No Symptoms
Physical Exam
Vital Signs
Vital Signs
Temp Pulse Resp BP Pulse Ox
98.1 F 117 18 115/73 94
12/20/24 15:37 12/20/24 15:37 12/20/24 15:37 12/20/24 15:37 12/20/24 15:37
Physical Exam
General: Well Developed, Well Nourished and No Apparent Distress
HEENT: NormoCephalic, Moist mucous membranes and Atraumatic
Respiratory: Clear and Decreased Breath Sounds
Cardiac: S1/S2 and Regular Rhythm; No Murmur or Rub
GI: Soft, Non Tender, Non Distended and Normal Bowel Sounds; No Organomegaly
Rectal: Deferred by Provider
Musculoskeletal: No Clubbing, No Cyanosis and No Edema
Skin: No Rash
Neuro: AO x 3 and Nonfocal/grossly intact
Psych: Calm
Laboratory Results
-
12/20/24 16:34
12/20/24 16:34
Laboratory Results
pH 7.45 (7.35-7.45) 12/20/24 16:34
pCO2 39 mmHg (32-35) H 12/20/24 16:34
pO2 67 mmHg (83-108) L 12/20/24 16:34
HCO3 27.1 mmol/L (21-28) 12/20/24 16:34
Total Bilirubin 0.5 mg/dl (0.2-1.3) 12/20/24 16:34
AST 34 U/L (14-36) 12/20/24 16:34
ALT 22 U/L (0-35) 12/20/24 16:34
Alkaline Phosphatase 84 U/L (38-126) 12/20/24 16:34
Data Reviewed
-
CT Scan: Report Reviewed by me
Lab Data: Labs Reviewed by me
Impression/Plan
-
# COPD exacerbation
# chronic hypoxic respiratory failure, uses 2.5 at night, recently requiring 4.5 all the time.
- patient received Decadron in ER
-Nebs as needed for short of breath and wheezing
-IV Decadron continued
-Consider supplemental oxygen to keep sat greater than 92
#Metabolic encephalopathy unclear cause
-UA pending
-head CT with no acute findings
-Chest x-ray pending
-At present patient is oriented x 3
# Anemia of chronic disease
-Hemoglobin stable at 10.3
-No active bleed
-Continue to monitor
# Acute on chronic hyponatremia/hyperkalemia likely from lisinopril
-Sodium 128
-Continue to monitor
-Normal saline continued
-BMP in a.m.
#hxt of immunoglobin deficiency.
-Hizentra held
# Anxiety
-Xanax, citalopram continued
# Essential hypertension
-Norvasc continued with hold parameter
# Hyperlipidemia
-Statin
# GERD
-PPI continued
# DVT prophylaxis
-Lovenox subcu
#CODE STATUS
-Full code
[2024-12-20 18:29] VITALS: BP 139/69
[2024-12-20] MEDS: DUONEB 3 ML INH (18:30)
[2024-12-20] MEDS: DECADRON 10 MG IV (18:32)
[2024-12-20 18:47] LABS: Urine Albumin Negative (Neg - Trace); Urine Bilirubin Negative (Negative); Urine Character Clear (Clear); Urine Color Yellow; Urine Glucose Negative (Negative); Urine Ketone Negative (Negative); Urine Leukocyte Negative (Negative); Urine Nitrite Negative (Negative); Urine Occult Blood Negative (Negative); Urine Urobilinogen Negative (Neg - 1+)
--- NOTE | 2024-12-20 18:55 | W.PN.UPDATE ---
Update Note
Progress Note Update
This is an addendum to the H&P written by Sowmya Carter on 12/20/2024. Patient seen and examined independently with WEATHERSTRIP MACHINE OPERATOR.
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 Short of breath for 1 month with
intermittent confusion. Started on prednisone taper 3 days ago by salon coordinator at [place]. Sent in for ABG to rule out hypercarbia.
Currently no symptoms. Lungs sound clear.
CT head shows no acute abnormality. Chest x-ray appears unremarkable, report pending.
Labs show potassium 5.2, sodium of 128. ABG unremarkable apart from hypoxemia.
Presentation consistent with acute COPD exacerbation which has improved significantly with dexamethasone today. Tracie, dexamethasone 4 mg every 12.
Hyperkalemia secondary to lisinopril. Hold lisinopril. Hyponatremia likely secondary to poor oral intake recently.
[2024-12-20 19:00] VITALS: BP 127/78
[2024-12-20 20:00] VITALS: BP 124/108
[2024-12-20 20:57] VITALS: BP 153/74; BMI 19.9
[2024-12-20] MEDS: DUONEB INH (21:07)
[2024-12-20 23:27] VITALS: BP 131/66
[2024-12-21] MEDS: NSS 1000 IV ×2 (01:15→11:53)
[2024-12-21 03:21] VITALS: BP 127/63
[2024-12-21] MEDS: DECADRON 4 MG IV (05:37)
[2024-12-21 06:44] LABS: % Basophils 0.3 % (0-2); % Immature Granulocytes 0.3 % (0-0.5); % Lymphocytes 18.3 % (20.5-51.1); % Monocytes 6.7 % (1.7-9.3); % Neutrophils 74.4 % (42.2-75.2); Absolute Lymphocytes 0.6 10^3/uL (1.2-3.4); Absolute Monocytes 0.2 10^3/uL (0.1-0.6); Absolute Neutrophils 2.2 10^3/uL (1.4-6.5); Hematocrit 28.5 % (37.0-47.0); Hemoglobin 9.3 g/dL (12.0-16.0); Mean Corp Hgb Conc. 32.6 g/dL (33.0-37.0); Mean Corpuscular Hgb 26.1 pg (27.0-31.0); Mean Corpuscular Volume 79.8 fL (81.0-99.0); Mean Platelet Volume 9.9 fL (7.4-10.4); Nucleated Red Blood Cells % 0 %; Platelet Count 344 10^3/uL (130-400); Red Blood Cell Count 3.57 10^6/uL (4.20-5.40); Red Cell Dist. Width 18.6 % (11.5-14.5)
[2024-12-21 07:10] LABS: Blood Urea Nitrogen 11 mg/dl (7-17); Calcium 9.2 mg/dl (8.4-10.2); Carbon Dioxide 26 mmol/L (22-30); Chloride 96 mmol/L (98-107); Estimated Creatinine Clearance 63 ml/min; Glucose 126 mg/dl (70-99); Potassium 4.2 mmol/L (3.5-5.1); Sodium 128 mmol/L (135-145); eGFR > 60.00
[2024-12-21] MEDS: SPIRIVA RESPIMAT 2.5 MCG 2 PUFF INH (07:15)
[2024-12-21] MEDS: DUONEB 3 ML INH ×2 (07:15→11:10)
[2024-12-21] MEDS: SYMBICORT 160/4.5 MCG INHALER 2 PUFF INH (07:16)
[2024-12-21 07:43] VITALS: BP 139/62
[2024-12-21] MEDS: PROTONIX 40 MG PO (07:51)
[2024-12-21] MEDS: ASPIR LOW (ENTERIC COATED) 81 MG PO (07:51)
[2024-12-21] MEDS: CELEXA 10 MG PO (07:51)
[2024-12-21] MEDS: LIPITOR 20 MG PO (07:51)
[2024-12-21] MEDS: NORVASC 2.5 MG PO (07:51)
[2024-12-21 11:38] VITALS: BP 140/60
--- NOTE | 2024-12-21 13:44 | W.DCSUMMARY ---
Discharge Summary
Discharge Data
Date of Admission: 12/20/24
Date of Discharge: 12/21/24
-
Pending Results: No
Hospital Course
GEN: NAD on o2
HEENT: NO JVD
LUNGS: DEC BREATH SOUNDS
CV: RRR NO MRG
ABD: NON TENDER POS BOWEL
EXTREM NO EDEMA
NEURO no focal deficits
74-year-old with past medical history of hypertension, COPD, GERD, hyperlipidemia, pulmonary hypertension, depression, anxiety presented to us with confusion and short of breath. Patient stated worsening short of breath for past 1 month. Patient
was evaluated by pulmonology at [facility], who started her on tapering prednisone. The nurse from [facility] called her this morning to see how she was doing. The nurse thought patient was confused . So the nurse called her
and told her to take her to the ER for further evaluation. Patient stated progressively worsening short of breath for past 1 months.over the weekend it got worse. Patient was using 2.5 L of oxygen at nighttime . For past 1 month she is
using 4.5 L all the time. she was evaluated by pulmonology on Tuesday and prescribed steroids. She was feeling better on steroids , her breathing got better .patient denied any chest pain .patient denied any headache, dizzy or syncope. Patient
denied any fever or chills. Patient denied any abdominal pain, nausea, vomiting or diarrhea. Patient denied dysuria hematuria. as per , since September, patient is little forgetful and confused at times.
# COPD exacerbation
# chronic hypoxic respiratory failure, uses 2.5 at night, recently requiring 4.5 all the time.
weaned to 2L
- patient received Decadron in ER
-Nebs as needed for short of breath and wheezing
-IV Decadron -> pred taper.
-Consider supplemental oxygen to keep sat greater than 92
Pt will follow up wtih Dr. Rosas in [place] for HOLLIS lung nodule per her request
#Metabolic encephalopathy unclear cause
-RESOLVED
-head CT with no acute findings
-Chest x-ray as above
-At present patient is oriented x 3
# Anemia of chronic disease
-Hemoglobin stable at 10.3
-No active bleed
-Continue to monitor
# Acute on chronic hyponatremia/hyperkalemia likely from lisinopril
-Sodium 128
-Continue to monitor
-Normal saline continued
-stable
#hxt of immunoglobin deficiency.
-Hizentra held
# Anxiety
-Xanax, citalopram continued
# Essential hypertension
-Norvasc continued with hold parameter
# Hyperlipidemia
-Statin
# GERD
-PPI continued
# DVT prophylaxis
-Lovenox subcu
#CODE STATUS
-Full code
35 min dc
Discharge Plan
-
Patient Disposition: Home (Routine Discharge)
Discharge Diagnosis/Procedures: copd
Activity: As tolerated
Driving Restrictions: As prior to admission
Referrals:
Julia Pandya PA-C [Family Provider] -
Prescriptions:
Continued
alprazolam 1 MG tablet
1 mg PO BIDPRN PRN (Reason: anxiety)
omeprazole 20 MG capsule,delayed release(DR/EC)
20 mg PO DAILY
aspirin 81 MG tablet,delayed release (DR/EC)
81 mg PO DAILY
atorvastatin 20 mg Tablet
20 mg PO DAILY
citalopram 10 mg Tablet
10 mg PO DAILY
amlodipine 2.5 mg Tablet
2.5 mg PO DAILY
lisinopril 40 mg Tablet
40 mg PO DAILY
ipratropium bromide 0.02 % Solution
2.5 ml INHALATION R Q6HPRN PRN (Reason: sob)
Prolia 60 mg/mL Syringe
60 mg SC [id number]
Hizentra 4 gram/20 mL (20 %) Syringe
0 mg SC FR
Trelegy Ellipta 200-62.5-25 mcg Blister With Device
1 inh INHALATION R DAILYPRN PRN (Reason: sob)
prednisone 10 mg Tablet
40 mg PO .TAPER
Patient Comments:
12/20/24: to take 4 tabs for 5 days, then 3 tabs for 3 days, 2 tabs for 3 days, 1 tab for 3 days. Today is second dose of 40mg
Discharge Orders:
Discharge Patient (As Directed); Ordered 12/21/24
Ordered By: Nikhil Garcia
Discharge Date and Time
Print Language: AMHARIC
[2024-12-21 14:38] VITALS: BP 120/57
--- NOTE | 2024-12-21 14:55 | CM ---
group fitness manager reviewed patient's chart and met with patient and spouse at bedside, patient has been cleared for discharge today patient is independent with adl's and ambulation, has home oxygen does not remember company, home no needs.
Plan; Home today no needs.
== END 2024-12-21 14:58 | disposition home or self-care (01) | DRG 190 ==
LOC: 4 EAST ACU 19:05
PROVIDERS: Nurse Practitioner; Registered Nurse; ADMITTING PHYSICIAN Hospitalist; ATTENDING PHYSICIAN Internal Medicine; EMERGENCY PHYSICIAN Emergency Medicine; FAMILY PHYSICIAN Physician Assistant Medical
DX: J44.1 Chronic obstructive pulmonary disease with (acute) exacerbation (principal); G93.41 Metabolic encephalopathy; J96.11 Chronic respiratory failure with hypoxia; E87.1 Hypo-osmolality and hyponatremia; D63.8 Anemia in other chronic diseases classified elsewhere; E87.5 Hyperkalemia; F41.9 Anxiety disorder, unspecified; I10 Essential (primary) hypertension; K21.9 Gastro-esophageal reflux disease without esophagitis; I27.20 Pulmonary hypertension, unspecified; E78.00 Pure hypercholesterolemia, unspecified; R91.1 Solitary pulmonary nodule; F32.A Depression, unspecified; M81.0 Age-related osteoporosis without current pathological fracture; G43.909 Migraine, unspecified, not intractable, without status migrainosus; Z87.891 Personal history of nicotine dependence; Z90.710 Acquired absence of both cervix and uterus
CPT/HCPCS: 70450; 71046; 80048; 80053; 81003; 82805; 85025; 93005; 94640; 96374; 99285

== ENCOUNTER → 2024-12-28 10:03 | Outpatient (REF) | payer OTHER, SELFPAY | LOC: RCS 10:03 | PROVIDERS: ATTENDING PHYSICIAN Internal Medicine Cardiovascular Disease; FAMILY PHYSICIAN Physician Assistant Medical | DX: R00.0 Tachycardia, unspecified (principal) | CPT/HCPCS: 93306 ==

== ENCOUNTER → 2025-01-02 08:28 | Outpatient (REF) | payer OTHER, SELFPAY | LOC: HWRCS 08:28 | PROVIDERS: ATTENDING PHYSICIAN Internal Medicine Cardiovascular Disease; FAMILY PHYSICIAN Physician Assistant Medical | DX: R00.0 Tachycardia, unspecified (principal) | CPT/HCPCS: 78452; 93017; A9500; J2785 ==

== ENCOUNTER → 2025-02-19 13:47 | Outpatient (REF) | payer OTHER, SELFPAY | LOC: RAD 13:47 | PROVIDERS: ATTENDING PHYSICIAN Internal Medicine Pulmonary Disease; FAMILY PHYSICIAN Physician Assistant Medical | DX: J43.9 Emphysema, unspecified (principal); R91.1 Solitary pulmonary nodule; G47.36 Sleep related hypoventilation in conditions classified elsewhere; J44.1 Chronic obstructive pulmonary disease with (acute) exacerbation | CPT/HCPCS: 71250 ==

== ENCOUNTER → 2025-04-17 09:34 | Outpatient (REF) | payer OTHER, SELFPAY | LOC: PAVMRI 09:34 | PROVIDERS: ATTENDING PHYSICIAN Psychiatry & Neurology Neurology; FAMILY PHYSICIAN Physician Assistant Medical | DX: R90.82 White matter disease, unspecified (principal) | CPT/HCPCS: 72156; A9575 ==

== ENCOUNTER → 2025-04-18 09:20 | Outpatient (REF) | payer OTHER, SELFPAY | LOC: PAVMRI 09:20 | PROVIDERS: ATTENDING PHYSICIAN Psychiatry & Neurology Neurology; FAMILY PHYSICIAN Physician Assistant Medical | DX: R90.82 White matter disease, unspecified (principal) | CPT/HCPCS: 72157; A9575 ==

== ENCOUNTER → 2025-07-08 16:07 | Outpatient (REF) | payer OTHER, SELFPAY | LOC: RAD 16:07 | PROVIDERS: ATTENDING PHYSICIAN Physician Assistant Medical | DX: R05.9 Cough, unspecified (principal) | CPT/HCPCS: 71046 ==

== ENCOUNTER 2025-08-13 21:14 | Inpatient (IN) | payer OTHER, SELFPAY ==
[2025-08-13] VITALS (7 sets, daily range): BP systolic 95–150; BP diastolic 56–89; BMI 21.5; BMI 20.8
[2025-08-13 16:09] LABS: Hematocrit 25.9 % (37.0-47.0); Hemoglobin 7.6 g/dL (12.0-16.0); Mean Corp Hgb Conc. 29.3 g/dL (33.0-37.0); Mean Corpuscular Volume 82.0 fL (81.0-99.0); Nucleated Red Blood Cells % 0 %; Red Cell Dist. Width 18.8 % (11.5-14.5)
[2025-08-13 16:12] LABS: D-Dimer 3.24 ug/mlFEU (0.00-0.50)
[2025-08-13 16:15] LABS: COVID-19 Antigen Negative (Negative); Platelet Count 648 10^3/uL (130-400)
[2025-08-13 16:24] LABS: ALT (SGPT) 23 U/L (0-35); AST (SGOT) 37 U/L (14-36); Albumin 4.2 g/dl (3.5-5.0); Alkaline Phosphatase 94 U/L (38-126); Blood Urea Nitrogen 18 mg/dl (7-17); Calcium 9.8 mg/dl (8.4-10.2); Carbon Dioxide 26 mmol/L (22-30); Chloride 99 mmol/L (98-107); Estimated Creatinine Clearance 59 ml/min; Glucose 100 mg/dl (70-99); Magnesium 1.7 mg/dl (1.6-2.3); Potassium 4.7 mmol/L (3.5-5.1); Sodium 135 mmol/L (135-145); Total Protein 7.4 g/dl (6.3-8.2); eGFR > 60.00
--- NOTE | 2025-08-13 18:47 | ED.GENMED ---
History of Present Illness
General
Chief Complaint: Breathing Problem
Source: patient
Exam Limitations: none
Time Seen by Provider: 08/13/25 15:32
Nursing documentation reviewed up to this point in time: agreed with
History of Present Illness
History of Present Illness:
Patient with history of oxygen dependent COPD, presents to ED secondary to worsening shortness of breath, especially with exertion over the past 1 week. Denies fever or chills. Denies chest pain. Denies back pain. Denies vomiting or diarrhea.
Denies leg pain or swelling. Denies recent travel or surgery. Patient was admitted to the hospital for similar complaint earlier this year, but states that her symptoms today are worse.
Past History
Past History
ED Past Medical History: COPD, GERD, HTN, Hypercholesterolemia, Psychiatric (anxiety) and Other (bronchitis)
ED Past Surgical History: None
Social History
Tobacco: Former smoker
Review of Systems
Review of Systems
Allergies reviewed?: Yes
All Other Systems: ROS reviewed and negative except as documented in HPI and ROS
Constitutional: Reports no symptoms; Denies fever or chills
EENT: Reports no symptoms
Respiratory: Reports cough and trouble breathing
Cardiac: Reports no symptoms; Denies chest pain or palpitations
ABD/GI: Reports no symptoms; Denies vomiting or diarrhea
Musculoskeletal: Reports no symptoms
Skin: Reports no symptoms
Neurological: Reports no symptoms
Phy Exam
Physical Exam
Physical Exam:
Physical Exam
General: mild respiratory distress, not acutely ill. afebrile
Head: nc/at. eomi
Neck: supple. no meningeal signs. normal posterior pharynx. no jvd
Heart: s1/s2 regular rate and rhythm, no murmur. tachycardic.
Lungs: mild respiratory distress. diminished breath sounds bilaterally
Abdomen: normal bowel sounds. not tender.
Neuro: alert and oriented x 3. no focal neurological deficits
Skin: no rash
Psychiatric: well kept. interactive and cooperative
Extremities: no edema. no calf tenderness.
Scores
Heart Failure Risk
Heart Failure Risk Score: Not Applicable
Course
Orders/Labs/Results
Orders:
Orders
08/13/25 Dinner
Regular
At Your Request: Full Participation
08/13/25 15:32
CR Chest - 2 Views Urgent
Reason For Exam: SOB
08/13/25 15:34
EKG [Electrocardiogram (*1)] Urgent
Reason for Study: Shortness of Breath
EKG- Treatment ONCE
08/13/25 15:52
COVID-19 Antigen Urgent
Source: Nasal Swab
Complete Blood Count/With Diff Urgent
Comprehensive Metabolic Panel Urgent
D-Dimer Urgent
Magnesium Urgent
08/13/25 17:59
CT Chest PE Study Urgent
Comment:
Reason For Exam: sob w elevated d-dimer
08/13/25 20:03
Heparin 4,000 units IV NOW STA
Nursing to Place Non Medication Order As Directed
Physician Order: PTT 6 hours after initial start of Heparin infusion
Above order entered?: Yes
08/13/25 20:06
Type+Screen Urgent
PTT Urgent
Troponin I Urgent
08/13/25 20:13
Heparin 2,000 units IV PRN PRN
Heparin 4,000 units IV PRN PRN
08/13/25 20:15
Heparin 54348 Units/250 ml 25,000 units in 250 ml IV PER PROTOCOL
Weight to be used for heparin protocol in kilograms (kg):: 49.9
Protocol:: DVT/PE
PTT Goal Range to be used:: PTT 73 to 111 seconds
Order type:: Initial
INITIAL Infusion Dose (UNITS/KG/hr) & then follow protocol:: 18 units/kg/hr
Infusion Dose in UNITS/hr & then follow protocol (UNITS/hr):: 900
INFUSION RATE in mL/hr & then follow protocol (mL/hr):: 9
For DVT/PE algorithm, re-bolus for low PTT?: Yes
PTT less than or equal to 64 seconds:: Re-bolus 80 units/kg (max 10,000units). Increase by 200 units/hr
(+ 2mL/hr)
PTT 64.1 to 72.9 seconds:: Re-bolus 40 units/kg (max 5,000 units). Increase by 100 units/hr
(+ 1mL/hr)
PTT 73 to 111 seconds:: Target Range. No change in rate.
PTT 111.1 to 130.9 seconds:: Decrease rate by 100 units/hr (- 1 mL/hr)
PTT 131 to 199.9 seconds:: HOLD for 1 hr. Then decrease by 200 units/hr (- 2mL/hr)
PTT greater than or equal to 200 seconds:: HOLD for 2 hrs & Notify Provider. Then decrease by 200 units/hr
(- 2mL/hr)
Lab follow-up:: Each change, PTT q6h until 2 consecutive are therapeutic. Then
PTT daily.
08/13/25 20:37
Venous Doppler Lwr Ext Bilat [US Periph Venous LOWER Ext Carlos Alberto] Urgent
Comment:
Reason For Exam: new pe, eval for dvt in case needs filter
08/13/25 20:38
Admit/Transfer Patient As Directed
Co-Sign Provider:
Level of Care: Inpatient admission
Assign to:: Telemetry
Physician / Group: Rebecca
Diagnosis: PE
Reason for Telemetry: Other
Other Reason for Telemetry: pulmonary embolism
Date to Stop Telemetry: 08/15/25
Time to Stop Telemetry: 11:00
Reason for Hospitalization: pulmonary embolism
Expected length of stay greater than two midnights?: Yes
ELOS- Estimated Length of Stay in days: 2
I certify the patient meets the requirements for IP care: Yes
PRN Pain Medication Management As Directed
May give lesser potent ordered pain med per pt: Yes
preference::
Protocol:: Medication orders for pain may be administered in a
manner that supports deferring to patient preference
when the pt is:
- Requesting an ordered lesser potent pain medication.
Least to most potent pain medications are defined
as: acetaminophen < NSAID < tramadol < opioids
(morphine, oxycodone, hydromorphone).
- Requesting a lesser dose of the same medication IF
ORDERED.
- Requesting a less intrusive route of administration
if both routes are prescribed by the provider (PO <
IV).
08/13/25 20:39
Code Status As Directed
Resuscitation Status: Full Code
08/13/25 22:13
Acetaminophen [Tylenol] 650 mg PO Q4HPRN PRN
Donepezil [Aricept] 5 mg PO HS
Ipratropium/Albuterol Sulfate [Duoneb] 3 ml INH R Q4HPRN PRN
Ondansetron Injectable [Zofran] 4 mg IV Q6HPRN PRN
08/13/25 22:13
Echo 2D MMode Color/Doppler Routine
Reason for Study: pulmonary embolism
GASTROINTESTINAL CONSULT Routine
Consulting Provider: Helen Baker
Was physician already notified: Yes
Reason for consult: anemia, going on heparin with trace heme+ brown stool
PULMONARY CONSULT Routine
Consulting Provider: Harry Odell
Was physician already notified: Yes
Reason for consult: PE
Heparin Protocol- PTT Orders As Directed
PTT per Heparin protocol: -Obtain CBC and baseline PTT - if not already collected.
-Obtain PTT 6 hours from start of infusion. Then, every 6 hours until 2 consecutive
PTT's are therapeutic. Then, PTT Daily.
-With each rate change, obtain PTT every 6 hours until 2 consecutive PTT's are
therapeutic. Then, PTT Daily.
Activity As Directed
Activity Level: With Assistance
Bladder Scan As Directed
Follow Bladder Retention/Intermittent Cath Algorithm?: Yes
Frequency: Per Retention Algorithm
Comment: as per intermittent urinary catheter algorithm
Bladder Scan As Directed
Follow Bladder Retention/Intermittent Cath Algorithm?: Yes
PRN if no void in __ hours: 6
Frequency: Per Retention Algorithm
If Bladder Scan Result >: 400
then:: Straight cath
Intake/ Output As Directed
Frequency: Per unit guidelines
Notify MD As Directed
Notify physician if: PTT is greater than or equal to 200.
Straight Cath As Directed
Frequency: Per Retention Algorithm
Additional Instructions: as per intermittent urinary catheter algorithm
Straight Cath As Directed
Frequency: Per Retention Algorithm
Additional Instructions: straight cath as needed per acute urinary retention algorithm for 24 hrs
Additional Instructions: for bladder scan greater than 400 mL
Vital Signs As Directed
Frequency: Per unit guidelines
O2 Therapy [RESP] Routine
Nasal Cannula Liter Flow: 4 LPM
Titrate/Wean O2 to maintain O2 sat greater than (%): 90
Pulse Ox/cont/shift [RESP] Routine
Quantity: 1
Special Instructions: check O2 Sat Q8 hours and at each change in oxygen liter flow and FiO2
08/14/25 02:30
PTT Urgent
08/14/25 03:00
H&H Q6H
08/14/25 06:00
Complete Blood Count/No Diff IN AM
Ferritin IN AM
Folate IN AM
Iron IN AM
Reticulocyte Count IN AM
Total Iron Binding IN AM
Troponin I IN AM
Vitamin B12 IN AM
08/14/25 08:00
Atorvastatin [Lipitor] 20 mg PO DAILY
Pantoprazole [Protonix IV] 40 mg IV DAILY
Polyethylene Glycol Powder [Miralax] 17 grams PO DAILY
Prednisone [Deltasone] 10 mg PO DAILY
Sertraline HCl [Zoloft] 25 mg PO DAILY
08/14/25 09:00
H&H Q6H
08/14/25 15:00
H&H Q6H
08/15/25 06:00
Complete Blood Count/No Diff Q2D
Comment: notify provider: Platelet count < 130,000 or decrease by 50% from baseline
08/15/25 11:00
DC Protocol for Telemetry ONCE
08/17/25 06:00
Complete Blood Count/No Diff Q2D
Comment: notify provider: Platelet count < 130,000 or decrease by 50% from baseline
08/19/25 06:00
Complete Blood Count/No Diff Q2D
Comment: notify provider: Platelet count < 130,000 or decrease by 50% from baseline
08/21/25 06:00
Complete Blood Count/No Diff Q2D
Comment: notify provider: Platelet count < 130,000 or decrease by 50% from baseline
08/23/25 06:00
Complete Blood Count/No Diff Q2D
Comment: notify provider: Platelet count < 130,000 or decrease by 50% from baseline
08/25/25 06:00
Complete Blood Count/No Diff Q2D
Comment: notify provider: Platelet count < 130,000 or decrease by 50% from baseline
08/27/25 06:00
Complete Blood Count/No Diff Q2D
Comment: notify provider: Platelet count < 130,000 or decrease by 50% from baseline
08/29/25 06:00
Complete Blood Count/No Diff Q2D
Comment: notify provider: Platelet count < 130,000 or decrease by 50% from baseline
Abnormal Lab Results
08/13/25
15:52
RBC 3.16 L 10^6/uL
(4.20-5.40)
Hgb 7.6 L g/dL
(12.0-16.0)
Hct 25.9 L %
(37.0-47.0)
MCH 24.1 L pg
(27.0-31.0)
MCHC 29.3 L g/dL
(33.0-37.0)
RDW 18.8 H %
(11.5-14.5)
Plt Count 648 H 10^3/uL
(130-400)
Absolute Lymphs (auto) 1.1 L 10^3/uL
(1.2-3.4)
Lymphocytes % 19.1 L %
(20.5-51.1)
Monocytes % 10.6 H %
(1.7-9.3)
D-Dimer 3.24 H ug/mlFEU
(0.00-0.50)
BUN 18 H mg/dl
(7-17)
Glucose 100 H mg/dl
(70-99)
AST 37 H U/L
(14-36)
08/13/25 15:52
08/13/25 15:52
Vital Signs
Initial and Last Documented VS:
Initial Vital Signs
Temp Pulse Resp BP Pulse Ox
98.7 F 136 18 147/78 90
08/13/25 15:11 08/13/25 15:11 08/13/25 15:11 08/13/25 15:11 08/13/25 15:11
Last Documented Vital Signs
Temp Pulse Resp BP Pulse Ox
98.7 F 109 23 114/56 100
08/13/25 15:11 08/13/25 22:00 08/13/25 22:00 08/13/25 21:00 08/13/25 22:00
MDM/Problems Addressed
MDM/Problems Addressed:
D-dimer elevated. CT PE study ordered, which reveals right lower lobe pulmonary embolism.
H&H noted. Rectal exam shows brown stool, trace heme positive. With minimal movement, patient noted to become moderately tachypneic, tachycardic, with desaturation. Patient will be switched to mid flow oxygen for support.
Discussed with on-call pulmonary, Dr. Odell, and discussed all findings. Without any evidence of active bleeding, despite anemia, does recommend starting heparin protocol.
On-call GI physician, , notified via [place] text.
Critical care statement: A total of 40 minutes of critical care time was provided for this patient. This includes management of unstable vital signs, evaluation of the patient at bedside, reviewing the patient's pertinent medical records, discussion
with consultants, review of old EKGs and review of pertinent medical records. This time with separate from time utilized to perform the aforementioned documented procedures
*Pulse Oximetry
SaO2: 100
Nasal Cannula flow liters per minute: 2
Patient hypoxic: yes
*Critical Care Note
Total Time (30-74mins, 75-104mins- exclusive of procedures): 40 min
ED Attending Note
-
Portions of this chart may have been created with voice recognition software.� Occasional wrong word or��sound alike� substitutions may have occurred due to the inherent limitations of voice recognition software.
Discharge Plan
Departure
Patient Disposition: Admit
Date of Disposition: 08/13/25
Time of Disposition: 20:09
Presentation/result/management discussed w/ accepting MD/: Hospitalist
Discharge Problem:
Pulmonary embolism, Hypoxia
Interventions
Interventions:
*Risk Screen - Suicide Last Done: 08/13/25 15:11
*General Assessment Last Done: 08/13/25 15:11
*Neglect/Abuse Screening Last Done: 08/13/25 15:11
*ED- Fall Risk Assessment Last Done: 08/13/25 19:45
*ED COVID-19 Vaccine History Last Done: 08/13/25 19:26
*ED Influenza Vaccine History Last Done: 08/13/25 19:26
*Nursing Disposition Last Done: 08/13/25 22:22
ED- Cardiac Assessment Last Done: 08/13/25 15:34
ED- Pulmonary Assessment Last Done: 08/13/25 15:34
Discharge Date and Time
Discharge Date/Time: 08/13/25 22:22
--- NOTE | 2025-08-13 20:14 | HPS.HSE ---
Family Physician
-
Family Physician: Kristopher Parnell
Chief Complaint
-
Shortness of breath
History of Present Illness
75-year-old female with past medical history significant for COPD on 2 L home O2, pulmonary hypertension, hypertension, anemia, hemoglobin deficiency presents to the emergency department with worsening shortness of breath over 2 weeks.
Patient reports being on 2 L but having increased to about 3 to 4 L over the last 2 weeks. Family reports fatigue. He denies any new cough. She denies any productive cough. She denies any wheezing. She has not had any fevers or chills. She
denies feeling dizzy or lightheaded but does report weakness as needed. She denies any melena or hematochezia. She denies history of GI bleed. She has no recent travel. She has no recent immobilization or surgery.
In the emergency department patient was afebrile, blood pressure was 95/60 with a pulse of 109 and satting 90% initially on 2 L. Now on mid flow. CBC shows a hemoglobin of 7.6 otherwise unremarkable with a platelet count of 648. Electrolytes
BUN/creatinine within the normal range. BUN was 18 and creatinine was 0.6. Chest x-ray with left lower lobe atelectasis. CT PE study shows eccentric thrombus within the right lower lobe pulmonary artery. The appearance is most suggestive of
chronic pulmonary embolism.
Medical History
Past Medical History
Past Medical History: Reports Other
Additional Past Medical History:
Hypertension
COPD
GERD
Hyperlipidemia
5 pulmonary hypertension
Depression
Osteoporosis
Anxiety
Migraine
Past Surgical History: Reports Other
Additional Past Surgical History:
Appendectomy
Hysterectomy
Sinus surgery
Social History
Tobacco: Former Smoker
Alcohol: None
Drug: None
Personal:
Living: With Family
Family History
Family History: Not pertinent
Allergies / Home Medications
Allergies reflects when Allergies were last updated in [employer].
Home Medications with original date entered in [employer]
Allergy/Medication List:
Allergies
Allergy/AdvReac Type Severity Reaction Status Date / Time
latex Allergy Unknown Rash Verified 09/24/24 14:33
Penicillins Allergy Hives/rash/ Verified 09/24/24 14:33
SOB
Sulfa (Sulfonamide Allergy Hives/itchi Verified 09/24/24 14:33
Antibiotics) ng/SOB
vancomycin [Vancomycin] Allergy Rash Verified 09/24/24 14:33
Home Medications
alprazolam 1 mg tablet 1 mg PO BIDPRN PRN anxiety 04/27/12
omeprazole 20 mg capsule,delayed release 20 mg PO DAILY Gastrointestinal Issue 04/27/12
aspirin 81 mg tablet,delayed release 81 mg PO DAILY Blood Clot Prevention/Tx 04/28/12
amlodipine 2.5 mg tablet 2.5 mg PO DAILY Blood Pressure 09/24/24
atorvastatin 20 mg tablet 20 mg PO DAILY 09/24/24
citalopram 10 mg tablet 10 mg PO DAILY Mental Health/Anxiety 09/24/24
denosumab 60 mg/mL subcutaneous syringe (Prolia) 60 mg SC [id number] 09/24/24
fluticasone fur. 200 mcg-umeclid 62.5 mcg-vilant 25 mcg inhalat.powder (Trelegy Ellipta) 1 inh inhalation R DAILY Lung/Breathing Issues 09/24/24
immun glob G 4 gram/20 mL (20 %)-prol-IgA 0-50 mcg/mL subcutaneous syr (Hizentra) 0 mg SC FR 09/24/24
ipratropium bromide 0.02 % solution for inhalation 2.5 ml inhalation R Q6HPRN PRN sob 09/24/24
lisinopril 40 mg tablet 40 mg PO DAILY Blood Pressure 09/24/24
prednisone 20 mg tablet 40 mg (2 x 20 mg) PO DAILY 4 days #8 tabs 09/25/24
Review of Systems
-
Constitutional: Reports No Symptoms
EENT: Reports No Symptoms
Respiratory: Reports Trouble Breathing
Cardiac: Reports No Symptoms
Abdomen/GI: Reports No Symptoms
: Reports No Symptoms
Musculoskeletal: Reports No Symptoms
Skin: Reports No Symptoms
Neurological: Reports No Symptoms
Endocrine: Reports No Symptoms
Hematologic/Lymphatic: Reports No Symptoms
Psych: Reports No Symptoms
Physical Exam
Vital Signs
Vital Signs
Temp Pulse Resp BP Pulse Ox
98.7 F 109 24 95/58 100
08/13/25 15:11 08/13/25 20:04 08/13/25 20:04 08/13/25 20:04 08/13/25 20:04
Physical Exam
General: Well Developed, Well Nourished and No Apparent Distress
HEENT: NormoCephalic, Moist mucous membranes and Atraumatic
Respiratory: Clear and Decreased Breath Sounds; No Wheezes or Crackles
Cardiac: S1/S2 and Regular Rhythm; No Murmur or Rub
GI: Soft, Non Tender, Non Distended and Normal Bowel Sounds; No Organomegaly
Rectal: Brown and Hem Positive (trace)
Genito-urinary: Deferred by me
Musculoskeletal: No Clubbing, No Cyanosis and No Edema
Skin: No Rash
Neuro: AO x 3 and Nonfocal/grossly intact
Psych: Calm
Laboratory Results
-
08/13/25 15:52
08/13/25 15:52
Laboratory Results
Total Bilirubin 0.4 mg/dl (0.2-1.3) 08/13/25 15:52
AST 37 U/L (14-36) H 08/13/25 15:52
ALT 23 U/L (0-35) 08/13/25 15:52
Alkaline Phosphatase 94 U/L (38-126) 08/13/25 15:52
Data Reviewed
-
Diagnostic Radiology: Image Personally Visualized and interpreted and Report Reviewed by me
CT Scan: Report Reviewed by me
Medical Tests (Nuc Med, Echo, EKG etc): Image Personally Visualized and interpreted
Lab Data: Labs Reviewed by me
Impression/Plan
-
IMPRESSION:
75-year-old with COPD on home O2 presents with progressive shortness of breath, found to have a right lower lobe pulmonary artery embolus. Also found progressive anemia with a hemoglobin of 7.6. There is trace heme positive brown stool on rectal
examination. He has been no melena or hematochezia. Patient is on omeprazole at home.
PLAN:
Shortness of breath - right lower lobe thrombosis, no RV strain on CT. Imaging is suggestive of chronic pulmonary embolism however cannot tell exactly how long this has been going on. No recent provoking factors noted. No history of venous
thromboembolism. Has had recent CT scans in the last year showing no malignancy.
-Will admit to telemetry for now
-She is satting around 100% on 4 L mid flow and appears comfortable
-BP slightly soft at 95 systolic
-Hemoglobin down to 7.6 with trace heme positive rectal exam, will start on heparin drip for now, GI agreed
-No signs of acute exacerbation of COPD at this time
-Will obtain echo and lower extremity ultrasound
- pulm consulted
Anemia -normocytic with hemoglobin 7.6 down from 9.3 in December. Trace heme positive stool. No history of melena or hematochezia. No prior history of GI bleed. Denies NSAIDs. Denies any abdominal pain
- Type and screen and consented
-Trend H&H every 6 hours
-Will continue PPI with IV now, hold aspirin
-Check reticulocyte, iron panel, ferritin, B12 folate
-Continue to Hemoccult all stool
-Regular diet for now
- gi consulted
COPD�no evidence of acute exacerbation
-Continue prn nebs, no standing inhaler per patient
-She is on chronic prednisone 10 mg daily which we will continue for now
Hypertension
� Hold lisinopril for now, hold amlodipine for now and monitor blood pressures
�Hold aspirin for now
DVT prophylaxis�on heparin drip
CODE STATUS�full code
[2025-08-13] MEDS: HEPARIN 4000 UNITS IV (20:38)
[2025-08-13] MEDS: HEPARIN 25000 UNITS/250 ML IV (20:38)
[2025-08-13 20:39] LABS: Troponin I 0.020 ng/ml
[2025-08-13 20:44] LABS: APTT 23.5 Sec (23.4-35.0)
--- NOTE | 2025-08-13 22:11 | PTCARENOTE ---
Pt received from ED to 415-1. Pt oriented to room and call li.
[2025-08-13] MEDS: ARICEPT 5 MG PO (22:52)
[2025-08-14] VITALS (8 sets, daily range): BP systolic 107–139; BP diastolic 52–78
[2025-08-14 03:19] LABS: Hematocrit 23.8 % (37.0-47.0); Hemoglobin 7.0 g/dL (12.0-16.0)
[2025-08-14 04:10] LABS: APTT > 200 Sec (23.4-35.0)
--- NOTE | 2025-08-14 04:30 | PTCARENOTE ---
House ADMINISTRATIVE PROGRAM SPECIALIST made aware of Hgb 7. Order for 1 unit PRBC transfusion received.
[2025-08-14 05:59] LABS: Mean Corp Hgb Conc. 29.7 g/dL (33.0-37.0); Mean Corpuscular Volume 81.1 fL (81.0-99.0); Platelet Count 584 10^3/uL (130-400); Red Cell Dist. Width 18.8 % (11.5-14.5); Reticulocyte Count 1.9 % (0.4-2.8)
[2025-08-14 06:16] LABS: Iron 26 ug/dl (37-170)
[2025-08-14 06:25] LABS: Total Iron Binding Capacity 427 ug/dl (265-497)
[2025-08-14 06:52] LABS: Ferritin 13.6 ng/ml (11.1-264.0)
--- NOTE | 2025-08-14 07:05 | W.PN.UPDATE ---
Update Note
Progress Note Update
hgb 7.0, stable VS, type and screen done, consent in chart, 1 unit of PRBC
[2025-08-14 07:07] LABS: Vitamin B12 852 pg/ml (239-931)
[2025-08-14 07:23] LABS: Folate > 20.0 ng/ml (2.76-20)
--- NOTE | 2025-08-14 07:27 | W.PN.HOSP.TC ---
Today's Communication/Plan
-
Transfuse
Monitor hemoglobin
Stop IV heparin
GI consult
Clear liquids
Assessment / Plan
Assessment / Plan
Gen-AAOx3, NAD
HEENT-NC, AT, anicteric, clear oral mm
Neck-supple
CV-reg, no M, +S1/S2
Lungs-clear B/L
Abd-soft, NT, ND
Ext-no edema
Musculoskeletal-no cyanosis, clubbing
Skin-warm and dry
Neuro-grossly non-focal
Psych-calm, cooperative
Acute on chronic hypoxic respiratory failure -suspect multifactorial etiology. Has underlying COPD. Now having acute on chronic anemia. New finding of right lower lobe pulmonary embolism, acute versus chronic.
Oxygenation stable on 4 L nasal cannula.
Patient states that at baseline she only uses nocturnal oxygen but 2 weeks ago started using it during the daytime as well due to increasing shortness of breath.
She is a relatively poor historian and cannot remember details.
Acute on chronic anemia -does have iron deficiency based on labs. Suspect GI bleed related anemia. Noted to have trace heme positive stool in the ER.
Baseline hemoglobin appears to be 9-10 range. Was 7.6 on admission last night, 7.0 this morning. Getting 1 unit of blood transfused. Relatively stable hemodynamically. Was tachycardic in the emergency room but currently heart rate is normal.
Acute GI bleed -etiology unclear. GI consulted. Maintain on clear liquid diet for now.
Previous EGD and colonoscopy were from 2016. Noted to have diverticulosis, polyp, hemorrhoids.
Right lower lobe pulmonary embolism -suspected to be chronic on CT. Hold further anticoagulation in light of acute anemia, GI bleed.
Bilateral lower extremity Doppler ultrasound negative for DVT. Troponin negative.
Patient denies history of VTE. No known history of malignancy.
No indication for echocardiogram.
COPD without exacerbation -baseline uses nocturnal oxygen. Started using daytime oxygen 2 weeks ago.
Mixed hyperlipidemia -atorvastatin.
Essential hypertension -controlled.
Osteoporosis
Unspecified immunodeficiency -on chronic immunoglobulins.
Anxiety disorder
Dementia -likely Alzheimer's type. On chronic donepezil.
GERD
Full code
Anticipated Discharge: > 48 hours
Subjective/Interval History
-
Date of Service: August 14, 2025
Patient seen and examined. Denies shortness of breath currently. No complaints.
Objective Data
-
Labs:
Laboratory Results
08/13/25 08/14/25 08/14/25
20:06 03:01 06:00
WBC 6.2 Cancelled
Hgb 7.0 L Cancelled
Hct 23.8 L Cancelled
Plt Count 584 H Cancelled
APTT 23.5 > 200 H*
08/14/25 08/14/25 08/14/25
09:00 12:10 15:00
WBC
Hgb Pending Pending
Hct Pending Pending
Plt Count
APTT Cancelled
Vital Signs:
Vital Signs
Temp Pulse Resp BP Pulse Ox
97.9 F 87 18 124/71 99
08/14/25 07:24 08/14/25 07:24 08/14/25 07:24 08/14/25 07:24 08/14/25 07:24
I&O
08/13/25 08/14/25 08/15/25
06:59 06:59 06:59
Intake Total 0 / 0 250 / 250
Output Total 500 / 500
Balance -500 / -500 250 / 250
Review of Systems
-
History Source: Patient
All other systems: Reviewed and negative
--- NOTE | 2025-08-14 07:34 | CON.PUL ---
Consultation
Consultation Request
Date/Time Consultation Requested: 08/14/2025
Date/Time Consultation Performed: 08/14/2025
Reason for Consultation: Shortness of breath
Medical History
-
Chief Complaint: Shortness of breath
History of Present Illness:
Patient is a very pleasant 75-year-old female with underlying mild dementia, severe underlying emphysema with COPD on home oxygen as well as chronic prednisone therapy who presented to the emergency room with worsening shortness of breath over the
last few weeks. Family reports that patient has been gradually becoming more short of breath over the last few months however more rapid worsening over the last 2 weeks. Historically patient was only on nighttime oxygen but lately she has been
using it essentially 25/04 with significant fatigue, shortness of breath. No reported cough or expectoration. No reported fever or chills. No sick contacts. No reported recent travel or hospitalization. Due to her dyspnea reportedly patient has
had a very sedentary lifestyle and spends most of her day sitting in chair. She has been on Trelegy in the past but lately has not been using any inhalers or nebulized therapy except for rare use of as needed albuterol. She is chronically on
prednisone 10 mg daily. Workup in the emergency room included a CT scan which showed a right lower lobe pulmonary embolism without significant RV strain. There was concern for possibly chronic pulmonary embolism. Patient was admitted to the
hospitalist service and pulmonary consultation was requested for further input.
Past Medical History
Past Medical History: Reports Other
Additional Past Medical History:
Hypertension
COPD
GERD
Hyperlipidemia
5 pulmonary hypertension
Depression
Osteoporosis
Anxiety
Migraine
Past Surgical History: Reports Other
Additional Past Surgical History:
Appendectomy
Hysterectomy
Sinus surgery
Social History
Tobacco: Former Smoker
Alcohol: None
Drug: None
Personal:
Living: With Family
Family History
Family History: Not pertinent
Allergies / Home Medications
Allergies / Home Medications
Allergies
Allergy/AdvReac Type Severity Reaction Status Date / Time
latex Allergy Rash Verified 08/13/25 15:11
Penicillins Allergy Hives/rash/ Verified 08/13/25 15:11
SOB
Sulfa (Sulfonamide Allergy Hives/itchi Verified 08/13/25 15:11
Antibiotics) ng/SOB
vancomycin (Vancomycin) Allergy Rash Verified 08/13/25 15:11
Home Medications
�Medication �Instructions �Recorded �Confirmed �Last Taken �Type
alprazolam 1 mg tablet 1 mg PO BIDPRN PRN anxiety 04/27/12 08/13/25 04/26/12 History
omeprazole 20 mg capsule,delayed 20 mg PO DAILY Gastrointestinal 04/27/12 08/13/25 04/28/12 07:00 History
release Issue
aspirin 81 mg tablet,delayed 81 mg PO DAILY Blood Clot 04/28/12 08/13/25 04/28/12 13:07 History
release Prevention/Tx
amlodipine 2.5 mg tablet 2.5 mg PO DAILY Blood Pressure 09/24/24 08/13/25 Unknown History
atorvastatin 20 mg tablet 20 mg PO DAILY High Cholesterol 09/24/24 08/13/25 Unknown History
citalopram 10 mg tablet 10 mg PO DAILY Mental 09/24/24 08/13/25 Unknown History
Health/Anxiety
denosumab 60 mg/mL subcutaneous 60 mg SC [id number] Osteoporosis 09/24/24 08/13/25 Unknown History
syringe (Prolia)
fluticasone fur. 200 mcg-umeclid 1 inh inhalation R DAILYPRN PRN sob 09/24/24 08/13/25 Unknown History
62.5 mcg-vilant 25 mcg
inhalat.powder (Trelegy Ellipta)
immun glob G 4 gram/20 mL (20 0 mg SC FR Autoimmune Disorder 09/24/24 08/13/25 08/10/25 History
%)-prol-IgA 0-50 mcg/mL
subcutaneous syr (Hizentra)
ipratropium bromide 0.02 % 2.5 ml inhalation R Q6HPRN PRN sob 09/24/24 08/13/25 Unknown History
solution for inhalation
lisinopril 40 mg tablet 40 mg PO DAILY Blood Pressure 09/24/24 08/13/25 Unknown History
prednisone 10 mg tablet 40 mg PO .TAPER Autoimmune Disorder 12/20/24 08/13/25 Unknown History
donepezil 5 mg tablet 5 mg PO HS 08/13/25 08/13/25 Unknown History
Review of Systems
-
Hematologic/Lymphatic: Other (All 14 systems reviewed and negative except as stated above in the history of present illness.)
Vitals / Labs / Diagnostic Testing
Vital Signs
Temp Pulse Resp BP Pulse Ox
97.9 F 87 18 124/71 99
08/14/25 07:24 08/14/25 07:24 08/14/25 07:24 08/14/25 07:24 08/14/25 07:24
Lab Data
08/13/25 15:52
Laboratory Results
08/13/25 08/14/25 08/14/25
20:06 03:01 12:10
APTT 23.5 > 200 H* Cancelled
Diagnostic Testing:
Physical Exam
-
HEENT: Normocephalic
Cardiovascular: S1/S2
Respiratory: Clear and Non-Labored Respirations
GI: Soft and Non Distended
Neurology: Awake and Alert
Skin: Warm
General: Comfortable
Assessment
-
#1. Acute on chronic hypoxic respiratory failure.
- Multifactorial, baseline O2 dependent COPD with severe upper lobe emphysema, pulmonary hypertension and now new diagnosis of PE
- Resume bronchodilator therapy and heparin as tolerated
- O2 as needed, target SpO2 >90% in view of Pulmonary HTN
#2. RLE PE, acute vs CTEPH
- Unclear chronicity, regardless needs anticoagulation
- Heparin was started at admission, now on hold in view of Anemia. Discussed with primary team and GI service, will resume heparin and monitor closely for any signs of bleeding
- No specific provoking factors identified, hemodynamically stable. Malignancy is certainly a concern considering concomitant anemia. Recommend CT abdomen pelvis for further evaluation
- Repeat ECHO to evaluate for Pulmonary HTN, and to see if any change from last imaging in 12/2024
- No significant right heart strain noted on CT, await echocardiogram. Hemodynamically stable, not requiring any pressor support.
- Considering hemodynamic stability and likely chronicity, and negative lower extremity dupplex US, will hold off IVC filter placement while GI work up in progress and resume heparin, monitor closely for any signs symptom of bleeding.
- If unable to anticoagulate, will need to consider IVC filter placement
- Duration of anticoagulation to be determined, favor usp unless a precipitating factor is identified. At age 75, less likely underlying heredity thrombophilia.
#3. COPD with severe bilateral emphysema, home O2 and steroid dependent
- PFT 11/19/21- FVC 2.38 or 91%, FEV1 0.76 or 39%, Ratio 32. 25% improvement in FEV1 with BD. TLC 4.44 or 1005, DLCO 24%. Severe obstructive disease with severely decreased diffusion capacity.
- Follows up at [facility]
- Chronically on Prednisone. Patient had been on Trelegy in the past, lately has not been using any inhaler other than as needed albuterol
- Continue prednisone, start DuoNeb 4 times daily in addition to budesonide twice daily. No wheezing on exam. Hold off antibiotics.
#4. Pulmonary HTN
- Pulmonary artery systolic pressure of 43 on echocardiogram, normal RV size and function
- Suspect group 3 with underlying severe oxygen and steroid-dependent COPD/Emphysema
- With new diagnosis of pulmonary embolism, will repeat echocardiogram to evaluate pulmonary pressures and RV size and function
- Continue supplemental O2, target SpO2 more than 90%
#5. Chronic LLL collapse, s/p endobronchial valve placement
- Unchanged from prior imaging in June 2024
- Continue outpatient follow-up with her zipper trimmer at [facility]
Other medical diagnoses:
- Anemia, acute on chronic. Workup in progress. CT abdomen pelvis pending
- Hypertension, hyperlipidemia
- Osteoporosis
- History of immunodeficiency, on chronic immunoglobulins
- Depression/anxiety disorder
- Cognitive deficit/dementia, on chronic donepezil
- Gastroesophageal reflux disease
Total time spent on this consultation/encounter _72___ minutes which includes review of history, physical exam, medications, laboratory data, personal review of imaging, extensive review of outpatient records, discussion with care team and
respiratory therapy.
Data:
CT Chest 08/2025: There is eccentric thrombus within the right lower lobe pulmonary artery as described. The appearance is more suggestive of chronic pulmonary embolism recommend acute PE. It may be useful to obtain follow-up CT angiography after
any proposed treatment.
Severe changes of emphysema.
Collapse of the left lower lobe, stable from examinations dating back to June 2024, with presence of left lower lobe stent/valves.
Lexiscan 01/2025: Probably normal study.
Inconclusive ECG for ischemia given the pharmacological study.
Small, mild, predominantly fixed defect as noted likely consistent with bowel artifact
Systolic function is hyperdynamic. The ejection fraction is 78%.
Stress Risk is moderate risk study (1 - 3% MT or /year) due to pharmacologic agent used.
ECHO 12/2024: Small left ventricular size.
Normal wall thickness and systolic function.
LV ejection fraction is 63% by Puri's biplane method of discs.
Normal right ventricular size and function.
Mild mitral regurgitation.
Mild to moderate aortic regurgitation.
Mild tricuspid regurgitation.
Estimated pulmonary artery pressure of 43 mmHg assuming a right atrial pressure of 3 mmHg.
Trace pulmonic regurgitation.
Normal pericardium without effusion.
The aortic root is of normal size.
The IVC was not well visualized.
[2025-08-14] MEDS: ZOLOFT 25 MG PO (08:01)
[2025-08-14] MEDS: DELTASONE 10 MG PO (08:01)
[2025-08-14] MEDS: MIRALAX 17 GRAMS PO (08:01)
[2025-08-14] MEDS: LIPITOR 20 MG PO (08:01)
[2025-08-14] MEDS: PROTONIX IV 40 MG IV (08:02)
[2025-08-14] MEDS: NSS (PRESERVATIVE FREE) 10 ML IV (08:02)
--- NOTE | 2025-08-14 09:45 | CON.GI ---
Addendum entered and electronically signed by Helen Gamble Do, MD 08/14/25 16:22:
I saw and evaluated the patient. I reviewed the resident�s note and agree with findings and plan as documented in the resident�s note.
Kriss is a 75yo W with h/o COPD and pulmonary HTN who was admitted for SOB found to have PE. GI consulted for anemia and heme + brown stool. She reports no GI complaints. Denies abd pain, blood in stools wt loss or nausea/vomiting. She does
have known h/o iron def anemia. No GI workup last EGD/colon was 2016. Vitals stable NTTP, NABS. wearing oxygen. Labs reviewed
Impression
- Pulmonary embolism
- Iron def anemia
- COPD
- Pulm HTN
- Osteoporosis
- Hemorrhoids
Recommendations
- Resume heparin gtt
- Given unprovoked nature of PE and iron def anemia concern for occult malignancy
- Recommend CTAP with oral IV contrast
- Timing of EGD/colon when optimize from pulm standpoint
- Start IV iron, add b12 folate levels
Will follow with you. Above d/w pulm and hospitalist
Original Note:
Consultation
-
Date/Time Consultation Requested: 08/13/25 22:13
Date/Time Consultation Performed: 08/14/25 8:00
Requesting Provider: Dr Kayli Fernandez
Performing Provider: Dr Helen Baker
Reason for Consultation: anemia, going on heparin with trace heme+ brown stool
Medical History
Chief Complaint / HPI
Chief Complaint: SOB
History of Present Illness:
75yoF PMH COPD, remote hx hemorrhoids presenting for SOB found to have PE on heparin consulted for trace Hemoccult, brown stool.
Pt denies GI symptoms. Denies trouble swallowing, reflux or throat pain, abdominal pain, constipation or diarrhea. She reports a remote hx of hemorrhoids years ago but none recently that she is aware of. Denies seeing blood in or around her stool.
No nausea or vomiting. She reports having a BM daily, last BM yesterday without the feeling of constipation. Denies changes in diet. Denies being vegan, vegatarian, taking B12 iron or folate supplements.
Endoscopy and colonoscopy last 01/05/16 without remarkable findings.
Takes Hizentra, prolia
PMH: immunoglobulin defiency anemia; sees anastacia for anemia
Past Medical History
Past Surgical History: Appendectomy, Gynecological (hysterectomy) and Other (sinus)
Social History
Tobacco: Former Smoker
Alcohol: None
Drug: None
Personal:
Living: With Family
Family History
Family History: Cancer (throat, lung, liver)
Allergies / Home Medications
Allergy/AdvReac Type Severity Reaction Status Date / Time
latex Allergy Rash Verified 08/13/25 15:11
Penicillins Allergy Hives/rash/ Verified 08/13/25 15:11
SOB
Sulfa (Sulfonamide Allergy Hives/itchi Verified 08/13/25 15:11
Antibiotics) ng/SOB
vancomycin (Vancomycin) Allergy Rash Verified 08/13/25 15:11
�Medication �Instructions �Recorded
alprazolam 1 mg tablet 1 mg PO BIDPRN PRN anxiety 04/27/12
omeprazole 20 mg capsule,delayed 20 mg PO DAILY Gastrointestinal 04/27/12
release Issue
aspirin 81 mg tablet,delayed 81 mg PO DAILY Blood Clot 04/28/12
release Prevention/Tx
amlodipine 2.5 mg tablet 2.5 mg PO DAILY Blood Pressure 09/24/24
atorvastatin 20 mg tablet 20 mg PO DAILY High Cholesterol 09/24/24
citalopram 10 mg tablet 10 mg PO DAILY Mental 09/24/24
Health/Anxiety
denosumab 60 mg/mL subcutaneous 60 mg SC [id number] Osteoporosis 09/24/24
syringe (Prolia)
fluticasone fur. 200 mcg-umeclid 1 inh inhalation R DAILYPRN PRN sob 09/24/24
62.5 mcg-vilant 25 mcg
inhalat.powder (Trelegy Ellipta)
immun glob G 4 gram/20 mL (20 0 mg SC FR Autoimmune Disorder 09/24/24
%)-prol-IgA 0-50 mcg/mL
subcutaneous syr (Hizentra)
ipratropium bromide 0.02 % 2.5 ml inhalation R Q6HPRN PRN sob 09/24/24
solution for inhalation
lisinopril 40 mg tablet 40 mg PO DAILY Blood Pressure 09/24/24
prednisone 10 mg tablet 40 mg PO .TAPER Autoimmune Disorder 12/20/24
donepezil 5 mg tablet 5 mg PO HS 08/13/25
Review of Systems
-
All other systems: A 12 pt ROS was Negative except as stated above in HPI
Vital Signs
Temp Pulse Resp BP Pulse Ox
97.9 F 87 18 124/71 99
08/14/25 07:24 08/14/25 07:24 08/14/25 07:24 08/14/25 07:24 08/14/25 07:24
Physical Exam
Exam
General: No Apparent Distress and Comfortable
HEENT: Normocephalic, Anicteric and Moist Mucous Membranes
Respiratory: Wheezes and Non Labored Respirations (nasal cannula in place)
Cardiac: S1/S2 and Regular Rhythm
GI: Soft, Non Tender and Non Distended
Skin: Warm and Dry
Neuro: AO x 3 and Nonfocal/Grossly Intact
Psych: Calm
Results
WBC Cancelled 08/14/25 06:00
Hgb Cancelled 08/14/25 06:00
Hct Cancelled 08/14/25 06:00
MCV Cancelled 08/14/25 06:00
Plt Count Cancelled 08/14/25 06:00
Absolute Neuts (auto) 4.0 10^3/uL (1.4-6.5) 08/13/25 15:52
APTT Cancelled 08/14/25 12:10
Sodium 135 mmol/L (135-145) 08/13/25 15:52
Potassium 4.7 mmol/L (3.5-5.1) 08/13/25 15:52
Chloride 99 mmol/L (98-107) 08/13/25 15:52
Carbon Dioxide 26 mmol/L (22-30) 08/13/25 15:52
BUN 18 mg/dl (7-17) H 08/13/25 15:52
Creatinine 0.6 mg/dL (0.6-1.0) 08/13/25 15:52
Calcium 9.8 mg/dl (8.4-10.2) 08/13/25 15:52
Total Bilirubin 0.4 mg/dl (0.2-1.3) 08/13/25 15:52
AST 37 U/L (14-36) H 08/13/25 15:52
ALT 23 U/L (0-35) 08/13/25 15:52
Alkaline Phosphatase 94 U/L (38-126) 08/13/25 15:52
Diagnostic Image Results:
Prior GI Procedures:
EGD: 01/05/16
Impression: - Normal esophagus.
- Z-line irregular, 39 cm from the incisors. Biopsied: Barretts esophagus
- Normal stomach. Biopsied.
- Normal examined duodenum. Biopsied.
Colonoscopy: 01/05/16
Impression: - One 8 mm polyp in the rectum. Resected and retrieved.
- Non-bleeding external hemorrhoids.
- Minimal diverticulosis in the sigmoid colon.
- The examined portion of the ileum was normal.
Polyp rectum (polypectomy)
? Traditional serrated adenoma (adenomatous polyp with superimposed serrated
architecture), focally extending to the cautery margin.
? Levels are examined.
06/24/14
A. Polyp cecum (biopsy)
? Adenomatous polyp.
? Levels are examined.
B. Polyp transverse colon (hot snare polypectomy and biopsy)
? Adenomatous polyp.
? Adenomatous glands extend to the cautery margin.
? A separate small fragment of benign colonic mucosa.
? Levels are examined.
C. Polyp rectum (biopsy)
? Hyperplastic polyp.
? Levels are examined.
Patient: KRISS STRICKLAND Specimen #: [id number]
Medical Record #[id number]
D. Polyp descending colon (hot snare polypectomy)
? Adenomatous polyp.
? Adenomatous glands extend to the polypectomy margin.
? Levels are examined
Assessment / Plan
-
75yoF PMH COPD, pulmonary hypertension, remote hx hemorrhoids presenting for SOB found to have PE on heparin consulted for trace Hemoccult, brown stool without abdominal pain, gross blood in stool.
Pt presented for SOB in setting of COPD exacerbation and findings of chronic PE. Labs were remarkable for low Hg 7.0 iron studies demonstrating low iron 26, TIBC 427, % sat 6, ferritin 13.6. Pt denies changes in BM, nausea, vomiting, blood in her
stool. Last colonoscopy 2015 was unremarkable, colonoscopy 2013 demonstrated numerous polyps. Hg in 12/2024 was 10.3. Pt has unknown hx of chronic anemia tx at [place] per [facility] chart, pending further investigation. Unknown baseline.
Pt is currently unstable for colonoscopy given PE and current oxygen requirements but would benefit from one to further evaluate source of low Hgb to r/o bleed vs malignancy vs nutrient deficiency.
#acute normocytic anemia
- s/p 1 unit of blood
- IV iron
- Transfuse Hg<7
- Colonoscopy needed, most likely will need to be performed outpt as PE resolves
PENDING ATTENDING RECOMMENDATIONS
-
-
Thank you for consultation and allowing me to participate in the patient's care. Please call the global compensation director GI physician during the after hours with any questions or concerns.
[2025-08-14 09:49] LABS: Hematocrit 28.4 % (37.0-47.0); Hemoglobin 8.1 g/dL (12.0-16.0)
[2025-08-14 10:15] LABS: Troponin I < 0.012 ng/ml
[2025-08-14] MEDS: FERRLECIT 110 MG IV (13:19)
[2025-08-14] MEDS: HEPARIN 25000 UNITS/250 ML IV (14:02)
[2025-08-14 14:19] LABS: Hematocrit 30.8 % (37.0-47.0); Hemoglobin 8.8 g/dL (12.0-16.0); Mean Corp Hgb Conc. 28.6 g/dL (33.0-37.0); Mean Corpuscular Volume 83.7 fL (81.0-99.0); Platelet Count 550 10^3/uL (130-400); Red Cell Dist. Width 19.1 % (11.5-14.5)
[2025-08-14 14:28] LABS: APTT 34.5 Sec (23.4-35.0)
[2025-08-14] MEDS: DUONEB 3 ML INH ×2 (15:12→19:19)
[2025-08-14] MEDS: OMNIPAQUE 50 ML PO (15:20)
[2025-08-14] MEDS: PULMICORT 0.5 MG INH (19:19)
[2025-08-14 20:45] LABS: APTT > 200 Sec (23.4-35.0)
[2025-08-14] MEDS: ARICEPT 5 MG PO (21:49)
[2025-08-14 22:22] LABS: Folate 17.3 ng/ml (2.76-20); Vitamin B12 745 pg/ml (239-931)
[2025-08-15] VITALS (8 sets, daily range): BP systolic 111–141; BP diastolic 54–74
[2025-08-15 05:04] LABS: Hematocrit 24.6 % (37.0-47.0); Hemoglobin 7.7 g/dL (12.0-16.0); Mean Corp Hgb Conc. 31.3 g/dL (33.0-37.0); Mean Corpuscular Volume 80.4 fL (81.0-99.0); Nucleated Red Blood Cells % 0 %; Platelet Count 452 10^3/uL (130-400); Red Cell Dist. Width 18.6 % (11.5-14.5)
[2025-08-15 05:44] LABS: APTT 181.2 Sec (23.4-35.0)
[2025-08-15] MEDS: DELTASONE 10 MG PO (07:45)
[2025-08-15] MEDS: ZOLOFT 25 MG PO (07:45)
[2025-08-15] MEDS: LIPITOR 20 MG PO (07:45)
[2025-08-15] MEDS: NSS (PRESERVATIVE FREE) 10 ML IV ×2 (07:46→19:19)
[2025-08-15] MEDS: PROTONIX IV 40 MG IV ×2 (07:46→19:19)
[2025-08-15] MEDS: PULMICORT 0.5 MG INH (07:46)
[2025-08-15] MEDS: DUONEB 3 ML INH ×3 (07:46→15:44)
[2025-08-15] MEDS: MIRALAX 17 GRAMS PO (07:46)
[2025-08-15] MEDS: DULCOLAX 10 MG PO (09:42)
[2025-08-15] MEDS: NULYTELY SOLUTION 4 LITERS PO (09:43)
--- NOTE | 2025-08-15 09:57 | CM ---
Spoke w/ patient's spouse, initial assessment completed. Patient is a 75-year-old female with past medical history significant for COPD on 2 L home O2, pulmonary hypertension, hypertension, anemia, hemoglobin deficiency presents to the emergency
department with worsening shortness of breath.
Patient resides w/ spouse in a single story rancher home, ramp access then 2 steps to enter. Patient is independent w/ ambulation, no device required. Independent w/ ADLs and personal care. Spouse stated he is planning to install a handicap bar in
the bathroom. Patient has O2 continuous at home, 2L, through [facility]. No SNF/HC hx reported.
Address, point of contact and insurance verified
PCP: Kristopher Parnell
[facility]
Plan: Home, no needs anticipated
--- NOTE | 2025-08-15 10:52 | W.PN.HOSP.TC ---
Today's Communication/Plan
-
Prep for EGD and colonoscopy tomorrow
Transfuse
PT/OT
Assessment / Plan
Assessment / Plan
Gen-awake, alert, NAD
HEENT-NC, AT, anicteric, clear oral mm
Neck-supple
CV-reg, no M, +S1/S2
Lungs-clear B/L
Abd-soft, NT, ND
Ext-no edema
Musculoskeletal-no cyanosis, clubbing
Skin-warm and dry
Neuro-grossly non-focal
Psych-calm, cooperative
Acute on chronic hypoxic respiratory failure -suspect multifactorial etiology. Has underlying COPD. Now having acute on chronic anemia. New finding of right lower lobe pulmonary embolism, acute versus chronic.
Pulmonary service believes the pulmonary embolism is the primary fast food delivery driver of the respiratory failure.
Oxygenation stable on 3 L nasal cannula, wean down as able.
Patient states that at baseline she only uses nocturnal oxygen but 2 weeks ago started using it during the daytime as well due to increasing shortness of breath.
She is a relatively poor historian and cannot remember details.
Acute on chronic anemia -does have iron deficiency based on labs. Suspect GI bleed related anemia. Noted to have trace heme positive stool in the ER.
Baseline hemoglobin appears to be 9-10 range.
Hemoglobin today 7.7. Has had 1 unit of blood transfused so far. Will get second unit transfused today.
Acute GI bleed -etiology unclear. GI consulted. Maintain on clear liquid diet for now.
Previous EGD and colonoscopy were from 2016. Noted to have diverticulosis, polyp, hemorrhoids.
Plan for EGD and colonoscopy tomorrow as per GI service.
CT abdomen/pelvis ordered by GI service, notes small pancreatic calcifications suggestive of possible chronic pancreatitis. Small right inguinal hernia. Moderate to severe vascular calcification involving the common iliac arteries.
Right lower lobe pulmonary embolism -suspected to be chronic on CT. Hold further anticoagulation in light of acute anemia, GI bleed.
Bilateral lower extremity Doppler ultrasound negative for DVT. Troponin negative.
Patient denies history of VTE. No known history of malignancy.
Echocardiogram completed, shows slight worsening of aortic regurgitation, no significant other changes compared to previous. Now read as moderate AR. LVEF 66%. RV size and systolic function normal.
COPD without exacerbation -baseline uses nocturnal oxygen. Started using daytime oxygen 2 weeks ago.
Mixed hyperlipidemia -atorvastatin.
Essential hypertension -controlled.
Osteoporosis
Unspecified immunodeficiency -on chronic immunoglobulins.
Anxiety disorder
Dementia -likely Alzheimer's type. On chronic donepezil.
GERD
Full code
PT/OT
Family updated at the bedside.
Anticipated Discharge: > 48 hours
Subjective/Interval History
-
Date of Service: August 15, 2025
Patient seen and examined, states her breathing is improved. No complaints. Asking to go home.
Objective Data
-
Labs:
Laboratory Results
08/15/25 08/15/25
04:50 12:45
WBC 4.9
Hgb 7.7 L
Hct 24.6 L
Plt Count 452 H
APTT 181.2 H* Pending
Vital Signs:
Vital Signs
Temp Pulse Resp BP Pulse Ox
98.0 F 83 16 131/60 100
08/15/25 07:00 08/15/25 07:48 08/15/25 07:48 08/15/25 07:00 08/15/25 07:48
I&O
08/14/25 08/15/25 08/16/25
06:59 06:59 06:59
Intake Total 0 / 0 1689
Output Total 500 / 500
Balance -500 / -500 1689 / 1689
Review of Systems
-
History Source: Patient
All other systems: Reviewed and negative
--- NOTE | 2025-08-15 11:28 | W.PN.GI.CBS2 ---
Addendum entered and electronically signed by Helen Gamble Do, MD 08/15/25 12:12:
I saw and evaluated the patient. I reviewed the resident�s note and agree with findings and plan as documented in the resident�s note.
She feels well. Tolerating diet no abd pain nausea/vomiting. Vitals stable NTTP, confused forgetful. Labs reviewed [facility] downtrending
Recommendations
- Transfuse 1 u PRBC today
- Recommend colonic cleanse for EGD/colon tomorrow 08/16
- She reports EGD/colon 1yr ago but on chart review was 2016. She is forgetful and consult obtained by myself through [facility]--she is high risk for low risk procedures
- Case d/w pulm she is optimized at this juncture for GI procedure
- Heparin gtt to be held at 5am 2hrs prior to case
- NPO At NC
Hospitalist and pulm updated. Will follow with you.
Original Note:
Today's Communication / Plan
-
PENDING ATTENDING RECOMMENDATIONS
Endoscopy and colonoscopy tomorrow
Assessment / Plan
-
75yoF PMH COPD, pulmonary hypertension, remote hx hemorrhoids presenting for SOB found to have PE on heparin consulted for trace Hemoccult, brown stool without abdominal pain, gross blood in stool.
Pt presented for SOB in setting of COPD exacerbation and findings of chronic PE. Labs were remarkable for low Hg 7.0 iron studies demonstrating low iron 26, TIBC 427, % sat 6, ferritin 13.6. Pt denies changes in BM, nausea, vomiting, blood in her
stool. Last colonoscopy 2015 was unremarkable, colonoscopy 2013 demonstrated numerous polyps. Hg in 12/2024 was 10.3. Pt has unknown hx of chronic anemia tx at [place] per [facility] chart, and takes Hizentra prescribed by an retail analyst. Pt and family cannot
recollect why she takes it but they report she is prescribed Hizentra every Tuesday for many years. They saw Dr. Magana in immunology but have not seen her in many years either.
Today, pt reports continued absence of GI symptoms. In the setting of such severe iron deficiency anemia, we cannot rule out a malignant source. Ct demonstrated no conclusive evidence for source of anemia. Plan to do endoscopy and colonoscopy
tomorrow. Hg 7.7 today down from 8.8 yesterday.
#iron defiency anemia
- s/p 1 unit of blood. Plan for unit of blood today.
- s/p IV iron
- Transfuse Hg<7
- Endoscopy and colonoscopy tomorrow. Prep today. Clears until midnight.
Subjective
Subjective
Date of Service: August 15, 2025
Ms. Zazueta continues to report no GI symptoms. No constipation, diarrhea, abdominal pain, nausea or vomiting.
Objective
Data Reviewed
Laboratory Data:
Laboratory Results
08/15/25 04:50
08/13/25 15:52
Laboratory Results
APTT 181.2 Sec (23.4-35.0) H* 08/15/25 04:50
Magnesium 1.7 mg/dl (1.6-2.3) 08/13/25 15:52
Total Bilirubin 0.4 mg/dl (0.2-1.3) 08/13/25 15:52
AST 37 U/L (14-36) H 08/13/25 15:52
ALT 23 U/L (0-35) 08/13/25 15:52
Alkaline Phosphatase 94 U/L (38-126) 08/13/25 15:52
Vital Signs and I&O:
Vital Signs
Temp Pulse Resp BP Pulse Ox
98.0 F 98 16 139/70 100
08/15/25 11:00 08/15/25 11:21 08/15/25 11:21 08/15/25 11:00 08/15/25 11:21
I&O
08/14/25 08/15/25 08/16/25
06:59 06:59 06:59
Intake Total 0 / 0 1690 / 1690
Output Total 500 / 500
Balance -500 / -500 1689
Physical Exam
Physical Exam
HEENT: Anicteric
Cardiology: Normal Sinus Rhythm
Pulmonary: Wheezes and Other (nonlabored respirations)
GI: Soft, Non Distended and Non Tender
Extremities: No Edema
Neuro: Non Focal
[2025-08-15 13:44] LABS: APTT 53.6 Sec (23.4-35.0)
--- NOTE | 2025-08-15 13:45 | W.PN.PUL3 ---
Today's Communication / Plan
-
- Target SpO2 more than 90% in view of pulmonary hypertension
- Minimize interruption to heparin infusion, monitor CBC
Assessment
-
Patient is a very pleasant 75-year-old female with underlying mild dementia, severe underlying emphysema with COPD on home oxygen as well as chronic prednisone therapy who presented to the emergency room with worsening shortness of breath over the
last few weeks. Family reports that patient has been gradually becoming more short of breath over the last few months however more rapid worsening over the last 2 weeks. Historically patient was only on nighttime oxygen but lately she has been
using it essentially 25/04 with significant fatigue, shortness of breath. No reported cough or expectoration. No reported fever or chills. No sick contacts. No reported recent travel or hospitalization. Due to her dyspnea reportedly patient has
had a very sedentary lifestyle and spends most of her day sitting in chair. She has been on Trelegy in the past but lately has not been using any inhalers or nebulized therapy except for rare use of as needed albuterol. She is chronically on
prednisone 10 mg daily. Workup in the emergency room included a CT scan which showed a right lower lobe pulmonary embolism without significant RV strain. There was concern for possibly chronic pulmonary embolism. Patient was admitted to the
hospitalist service and pulmonary consultation was requested for further input.
#1. Acute on chronic hypoxic respiratory failure.
- Multifactorial, baseline O2 dependent COPD with severe upper lobe emphysema, pulmonary hypertension and now new diagnosis of PE
- Resumed bronchodilator therapy and continue heparin as tolerated
- O2 as needed, target SpO2 >90% in view of Pulmonary HTN
#2. RLE PE, acute vs CTEPH
- Unclear chronicity, regardless needs anticoagulation
- Heparin was started at admission, briefly held in view of Anemia. Discussed with primary team and GI service, continue heparin and monitor closely for any signs of bleeding.
- No specific provoking factors identified, hemodynamically stable. Malignancy is certainly a concern considering concomitant anemia. CT abdomen pelvis reviewed, without concern for malignancy.
- Repeat ECHO without any RV strain or RV dysfunction, estimated pulmonary artery pressure has actually improved to 38 now.
- No significant right heart strain noted on CT. Hemodynamically stable, not requiring any pressor support.
- Duration of anticoagulation to be determined, favor extermination inspector unless a precipitating factor is identified. At age 75, less likely underlying heredity thrombophilia.
- Ongoing drop in hemoglobin noted. Discussed with GI service. Ideally would like to delay procedures requiring anesthesia by 3 months post pulmonary embolism, however patient has continued to drop hemoglobin with anticoagulation despite blood
transfusion. Also concern for GI malignancy with iron deficiency anemia, advanced age and pulmonary embolism. RV function is preserved and pulmonary artery pressure is better on most recent echocardiogram compared to 12/2024. Discussed with
family at bedside. Patient certainly at higher risk of complications particularly related to anesthesia in view of pulmonary embolism but at this point favor proceeding with the EGD and colonoscopy. Continue heparin as tolerated and minimize
interruption for the procedure. Further recommendations post colonoscopy.
#3. COPD with severe bilateral emphysema, home O2 and steroid dependent
- PFT 11/19/21- FVC 2.38 or 91%, FEV1 0.76 or 39%, Ratio 32. 25% improvement in FEV1 with BD. TLC 4.44 or 1005, DLCO 24%. Severe obstructive disease with severely decreased diffusion capacity.
- Follows up at [facility]
- Chronically on Prednisone. Patient had been on Trelegy in the past, lately has not been using any inhaler other than as needed albuterol
- Continue prednisone, started DuoNeb 4 times daily in addition to budesonide twice daily. No wheezing on exam. Hold off antibiotics. Need to resume triple therapy at discharge.
#4. Pulmonary HTN
- Pulmonary artery systolic pressure of 43 on echocardiogram, normal RV size and function. More recently pulmonary artery pressure down to 38 mm with preserved RV size and function.
- Suspect group 3 with underlying severe oxygen and steroid-dependent COPD/Emphysema
- With new diagnosis of pulmonary embolism, will repeat echocardiogram to evaluate pulmonary pressures and RV size and function
- Continue supplemental O2, target SpO2 more than 90%
#5. Chronic LLL collapse, s/p endobronchial valve placement
- Unchanged from prior imaging in June 2024
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
Other medical diagnoses:
- Anemia, acute on chronic. Workup in progress. CT abdomen pelvis pending
- Hypertension, hyperlipidemia
- Osteoporosis
- History of immunodeficiency, on chronic immunoglobulins
- Depression/anxiety disorder
- Cognitive deficit/dementia, on chronic donepezil
- Gastroesophageal reflux disease
Discussed with GI and primary team.
Total time spent on this consultation/encounter _45___ minutes which includes review of history, physical exam, medications, laboratory data, personal review of imaging, extensive review of outpatient records, discussion with care team and
respiratory therapy.
Data:
ECHO 08/2025: 1. Normal left ventricular size and function.
2. Left ventricular ejection fraction is normal with an ejection fraction of 66 % by Puri's biplane method of discs.
3. Right ventricular size and systolic function are within normal limits.
4. Moderate aortic regurgitation.
5. Aortic valve Pressure half-time 283 ms.
6. Mild mitral valve regurgitation.
7. Mild tricuspid regurgitation. Estimated pulmonary artery pressure of 38 mmHg assuming a right atrial pressure of 3 mmHg.
8. Compared to a prior transthoracic echocardiogram study from 12/28/24 The aortic regurgitation is slightly worse. Otherwise no significant change.
CT Chest 08/2025: There is eccentric thrombus within the right lower lobe pulmonary artery as described. The appearance is more suggestive of chronic pulmonary embolism recommend acute PE. It may be useful to obtain follow-up CT angiography after
any proposed treatment.
Severe changes of emphysema.
Collapse of the left lower lobe, stable from examinations dating back to June 2024, with presence of left lower lobe stent/valves.
Lexiscan 01/2025: Probably normal study.
Inconclusive ECG for ischemia given the pharmacological study.
Small, mild, predominantly fixed defect as noted likely consistent with bowel artifact
Systolic function is hyperdynamic. The ejection fraction is 78%.
Stress Risk is moderate risk study (1 - 3% TX or /year) due to pharmacologic agent used.
ECHO 12/2024: Small left ventricular size.
Normal wall thickness and systolic function.
LV ejection fraction is 63% by Puri's biplane method of discs.
Normal right ventricular size and function.
Mild mitral regurgitation.
Mild to moderate aortic regurgitation.
Mild tricuspid regurgitation.
Estimated pulmonary artery pressure of 43 mmHg assuming a right atrial pressure of 3 mmHg.
Trace pulmonic regurgitation.
Normal pericardium without effusion.
The aortic root is of normal size.
The IVC was not well visualized.
Subjective Data
-
Date of Service:
Date of Service: August 15, 2025
Subjective:
Patient comfortably sitting in bed in no acute distress.
Review of Systems
Genitourinary: Other (All 14 systems reviewed and negative except as stated above in the history of present illness.)
Objective Data
Data Reviewed
Vital Signs / I&O / Oxygen:
Vital Signs
Temp Pulse Resp BP Pulse Ox
97.9 F 104 18 114/63 99
08/15/25 12:54 08/15/25 12:54 08/15/25 12:54 08/15/25 12:54 08/15/25 12:54
Intake and Output
08/14/25 08/15/25 08/16/25
06:59 06:59 06:59
Intake Total 0 / 0 1690 / 1690 0 / 0
Output Total 500 / 500
Balance -500 / -500 1690 / 1690 0 / 0
SaO2 99
Nasal Cannula flow liters per 3
minute
Physical Exam
General: Comfortable
HEENT: Normocephalic
Cardiovascular: S1-S2
Respiratory: Clear
GI: Soft and Non Distended
Neurology: Awake, Alert and Other (Mild cognitive deficit noted)
Labs/Micro/Reports
Lab Data
08/15/25 04:50
08/13/25 15:52
Laboratory Results
08/14/25 08/14/25 08/15/25
14:00 20:07 04:50
APTT 34.5 > 200 H* 181.2 H*
[2025-08-15] MEDS: DUONEB INH (19:40)
[2025-08-15] MEDS: PULMICORT INH (19:41)
[2025-08-15] MEDS: ARICEPT 5 MG PO (21:17)
[2025-08-15 22:06] LABS: APTT > 200 Sec (23.4-35.0)
[2025-08-16] VITALS (7 sets, daily range): BP systolic 121–140; BP diastolic 67–80; PULSE 101; O2SAT 99; BMI 20.8
[2025-08-16 05:27] LABS: Hematocrit 28.5 % (37.0-47.0); Hemoglobin 8.7 g/dL (12.0-16.0); Mean Corp Hgb Conc. 30.5 g/dL (33.0-37.0); Mean Corpuscular Volume 79.6 fL (81.0-99.0); Nucleated Red Blood Cells % 0 %; Platelet Count 444 10^3/uL (130-400); Red Cell Dist. Width 18.4 % (11.5-14.5)
[2025-08-16 06:28] LABS: APTT 171.2 Sec (23.4-35.0)
[2025-08-16] MEDS: PULMICORT 0.5 MG INH (07:57)
[2025-08-16] MEDS: DUONEB 3 ML INH ×3 (07:57→15:50)
--- NOTE | 2025-08-16 08:15 | W.PN.HOSP.TC ---
Today's Communication/Plan
-
IV Decadron x 1
EGD/colonoscopy
Monitor hemoglobin
PT/OT
Assessment / Plan
Assessment / Plan
Gen-awake, alert, NAD
HEENT-NC, AT, anicteric, clear oral mm
Neck-supple
CV-reg, no M, +S1/S2
Lungs-mild bilateral expiratory wheezing
Abd-soft, NT, ND
Ext-no edema
Musculoskeletal-no cyanosis, clubbing
Skin-warm and dry
Neuro-grossly non-focal
Psych-calm, cooperative
Acute on chronic hypoxic respiratory failure -suspect multifactorial etiology. Has underlying COPD. Now having acute on chronic anemia. New finding of right lower lobe pulmonary embolism, acute versus chronic.
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
Oxygenation stable on 2 L nasal cannula, wean down as able.
Patient states that at baseline she only uses nocturnal oxygen but 2 weeks ago started using it during the daytime as well due to increasing shortness of breath.
She is a relatively poor historian and cannot remember details due to underlying dementia.
Acute on chronic anemia -does have iron deficiency based on labs. Suspect GI bleed related anemia. Noted to have trace heme positive stool in the ER.
Received 1 dose of IV iron on 08/14.
Baseline hemoglobin appears to be 9-10 range.
Hemoglobin improved to 8.7 today, has had 2 units PRBC transfused so far this admission.
Acute GI bleed -etiology unclear. GI consulted. Maintain on clear liquid diet for now.
Previous EGD and colonoscopy were from 2016. Noted to have diverticulosis, polyp, hemorrhoids.
Plan for EGD and colonoscopy today as per GI service.
CT abdomen/pelvis ordered by GI service, notes small pancreatic calcifications suggestive of possible chronic pancreatitis. Small right inguinal hernia. Moderate to severe vascular calcification involving the common iliac arteries.
Right lower lobe pulmonary embolism -suspected to be chronic on CT. Hold further anticoagulation in light of acute anemia, GI bleed.
Bilateral lower extremity Doppler ultrasound negative for DVT. Troponin negative.
Patient denies history of VTE. No known history of malignancy.
Echocardiogram completed, shows slight worsening of aortic regurgitation, no significant other changes compared to previous. Now read as moderate AR. LVEF 66%. RV size and systolic function normal.
Has been on heparin IV for PE, currently on hold for endoscopy today. Resume afterwards when safe and cleared by GI.
COPD without exacerbation -baseline uses nocturnal oxygen. Started using daytime oxygen 2 weeks ago.
Mild wheezing on exam today, will give 1 dose of IV steroids. Continue chronic prednisone 10 mg daily. Getting a nebulizer treatment currently.
Mixed hyperlipidemia -atorvastatin.
Essential hypertension -controlled.
Osteoporosis
Unspecified immunodeficiency -on chronic immunoglobulins.
Anxiety disorder
Dementia -likely Alzheimer's type. On chronic donepezil.
GERD
Full code
PT/OT
Family updated at the bedside.
Anticipated Discharge: 24 - 48 hours
Subjective/Interval History
-
Date of Service: August 16, 2025
Patient seen and examined, no complaints.
Objective Data
-
Labs:
Laboratory Results
08/15/25 08/16/25 08/16/25
21:14 05:06 05:45
WBC 5.5
Hgb 8.7 L
Hct 28.5 L
Plt Count 444 H
APTT > 200 H* 171.2 H*
Vital Signs:
Vital Signs
Temp Pulse Resp BP Pulse Ox
98.1 F 85 16 135/67 98
08/16/25 03:50 08/16/25 07:59 08/16/25 07:59 08/16/25 03:50 08/16/25 07:59
I&O
08/15/25 08/16/25 08/17/25
06:59 06:59 06:59
Intake Total 1690 / 1690 5170 / 5170
Balance 169 / 1695169 / 5169
Review of Systems
-
History Source: Patient
All other systems: Reviewed and negative
[2025-08-16] MEDS: ZOLOFT 25 MG PO (08:23)
[2025-08-16] MEDS: LIPITOR 20 MG PO (08:23)
[2025-08-16] MEDS: MIRALAX 17 GRAMS PO (08:24)
[2025-08-16] MEDS: DELTASONE 10 MG PO (08:24)
[2025-08-16] MEDS: NSS (PRESERVATIVE FREE) 10 ML IV ×2 (08:25→19:50)
[2025-08-16] MEDS: DECADRON 6 MG IV (08:26)
[2025-08-16] MEDS: PROTONIX IV 40 MG IV ×2 (08:26→19:51)
[2025-08-16] MEDS: HEPARIN 25000 UNITS/250 ML IV (12:02)
--- NOTE | 2025-08-16 12:54 | PTOTSP ---
pt currently requires supervision to no assistance to complete simple ADLs, functional transfers. no acute OT needs identified at this time, will sign off.
--- NOTE | 2025-08-16 12:56 | W.PN.PUL3 ---
Today's Communication / Plan
-
- If hemoglobin stays stable on heparin for next 24 hours, can switch to Eliquis p.o.
- Supplemental oxygen, target SpO2 greater than 90% in view of pulmonary hypertension
- Resume Trelegy and her home dose of prednisone at discharge
- Resume outpatient follow-up with patient's sports book board attendant at [facility]
- Pulmonary team will sign off, please call as needed
Assessment
-
Patient is a very pleasant 75-year-old female with underlying mild dementia, severe underlying emphysema with COPD on home oxygen as well as chronic prednisone therapy who presented to the emergency room with worsening shortness of breath over the
last few weeks. Family reports that patient has been gradually becoming more short of breath over the last few months however more rapid worsening over the last 2 weeks. Historically patient was only on nighttime oxygen but lately she has been
using it essentially 25/04 with significant fatigue, shortness of breath. No reported cough or expectoration. No reported fever or chills. No sick contacts. No reported recent travel or hospitalization. Due to her dyspnea reportedly patient has
had a very sedentary lifestyle and spends most of her day sitting in chair. She has been on Trelegy in the past but lately has not been using any inhalers or nebulized therapy except for rare use of as needed albuterol. She is chronically on
prednisone 10 mg daily. Workup in the emergency room included a CT scan which showed a right lower lobe pulmonary embolism without significant RV strain. There was concern for possibly chronic pulmonary embolism. Patient was admitted to the
hospitalist service and pulmonary consultation was requested for further input.
#1. Acute on chronic hypoxic respiratory failure.
- Multifactorial, baseline O2 dependent COPD with severe upper lobe emphysema, pulmonary hypertension and now new diagnosis of PE
- Resumed bronchodilator therapy and continue heparin as tolerated
- O2 as needed, target SpO2 >90% in view of Pulmonary HTN
- At discharge, can resume Trelegy as well as supplemental oxygen
- Patient follows up with a sports book board attendant at [facility], recommend resuming follow-up postdischarge
#2. RLE PE, acute vs CTEPH
- Unclear chronicity, regardless needs anticoagulation
- Heparin was started at admission, tolerating well.
- No specific provoking factors identified, hemodynamically stable. Malignancy is certainly a concern considering concomitant anemia. CT abdomen pelvis reviewed, without concern for malignancy.
- Repeat ECHO without any RV strain or RV dysfunction, estimated pulmonary artery pressure has actually improved to 38 now.
- No significant right heart strain noted on CT. Hemodynamically stable, not requiring any pressor support.
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 At age 75, less likely underlying heredity thrombophilia.
- If hemoglobin stays stable on heparin next 24 hours, can switch to Eliquis and plan discharge
#3. COPD with severe bilateral emphysema, home O2 and steroid dependent
- PFT 11/19/21- FVC 2.38 or 91%, FEV1 0.76 or 39%, Ratio 32. 25% improvement in FEV1 with BD. TLC 4.44 or 1005, DLCO 24%. Severe obstructive disease with severely decreased diffusion capacity.
- Follows up at [facility]
- Chronically on Prednisone. Patient had been on Trelegy in the past, lately has not been using any inhaler other than as needed albuterol
- Continue prednisone, started DuoNeb 4 times daily in addition to budesonide twice daily. No wheezing on exam. Hold off antibiotics. Need to resume triple therapy at discharge.
#4. Pulmonary HTN
- Pulmonary artery systolic pressure of 43 on echocardiogram, normal RV size and function. More recently pulmonary artery pressure down to 38 mm with preserved RV size and function.
- Suspect group 3 with underlying severe oxygen and steroid-dependent COPD/Emphysema
- Continue supplemental O2, target SpO2 more than 90%
#5. Chronic LLL collapse, s/p endobronchial valve placement
- Unchanged from prior imaging in June 2024
- Continue outpatient follow-up with her sports book board attendant at [facility]
Other medical diagnoses:
- Anemia, acute on chronic. EGD suggestive of gastropathy erosive as well as duodenal ulcers, on PPI twice daily now. Also colonic polyps. GI service on case.
- Hypertension, hyperlipidemia
- Osteoporosis
- History of immunodeficiency, on chronic immunoglobulins
- Depression/anxiety disorder
- Cognitive deficit/dementia, on chronic donepezil
- Gastroesophageal reflux disease
Discussed with GI and primary team.
Total time spent on this consultation/encounter _46___ minutes which includes review of history, physical exam, medications, laboratory data, personal review of imaging, extensive review of outpatient records, discussion with care team and
respiratory therapy.
Data:
ECHO 08/2025: 1. Normal left ventricular size and function.
2. Left ventricular ejection fraction is normal with an ejection fraction of 66 % by Puri's biplane method of discs.
3. Right ventricular size and systolic function are within normal limits.
4. Moderate aortic regurgitation.
5. Aortic valve Pressure half-time 283 ms.
6. Mild mitral valve regurgitation.
7. Mild tricuspid regurgitation. Estimated pulmonary artery pressure of 38 mmHg assuming a right atrial pressure of 3 mmHg.
8. Compared to a prior transthoracic echocardiogram study from 12/28/24 The aortic regurgitation is slightly worse. Otherwise no significant change.
CT Chest 08/2025: There is eccentric thrombus within the right lower lobe pulmonary artery as described. The appearance is more suggestive of chronic pulmonary embolism recommend acute PE. It may be useful to obtain follow-up CT angiography after
any proposed treatment.
Severe changes of emphysema.
Collapse of the left lower lobe, stable from examinations dating back to June 2024, with presence of left lower lobe stent/valves.
Lexiscan 01/2025: Probably normal study.
Inconclusive ECG for ischemia given the pharmacological study.
Small, mild, predominantly fixed defect as noted likely consistent with bowel artifact
Systolic function is hyperdynamic. The ejection fraction is 78%.
Stress Risk is moderate risk study (1 - 3% CT or /year) due to pharmacologic agent used.
ECHO 12/2024: Small left ventricular size.
Normal wall thickness and systolic function.
LV ejection fraction is 63% by Puri's biplane method of discs.
Normal right ventricular size and function.
Mild mitral regurgitation.
Mild to moderate aortic regurgitation.
Mild tricuspid regurgitation.
Estimated pulmonary artery pressure of 43 mmHg assuming a right atrial pressure of 3 mmHg.
Trace pulmonic regurgitation.
Normal pericardium without effusion.
The aortic root is of normal size.
The IVC was not well visualized.
Subjective Data
-
Date of Service:
Date of Service: August 16, 2025
Subjective:
Patient comfortably lying in bed in no acute distress. Tolerated colonoscopy well.
Review of Systems
Genitourinary: Other (All 14 systems reviewed and negative except as stated above in the history of present illness.)
Objective Data
Data Reviewed
Vital Signs / I&O / Oxygen:
Vital Signs
Temp Pulse Resp BP Pulse Ox
98.1 F 95 20 121/71 100
08/16/25 11:23 08/16/25 11:23 08/16/25 11:23 08/16/25 11:23 08/16/25 11:23
Intake and Output
08/15/25 08/16/25 08/17/25
06:59 06:59 06:59
Intake Total 1690 / 1690 5170 / 5170
Balance 1690 / 1690 5170 / 5170
SaO2 100
Nasal Cannula flow liters per 2
minute
Physical Exam
General: Comfortable
HEENT: Normocephalic
Cardiovascular: S1-S2
Respiratory: Clear
GI: Soft and Non Distended
Neurology: Awake, Alert and Other (Mild cognitive deficit noted)
Labs/Micro/Reports
Lab Data
08/16/25 05:06
08/13/25 15:52
Laboratory Results
08/15/25 08/15/25 08/16/25
13:22 21:14 05:45
APTT 53.6 H > 200 H* 171.2 H*
[2025-08-16 18:37] LABS: APTT 85.2 Sec (23.4-35.0)
[2025-08-16] MEDS: PULMICORT INH (19:40)
[2025-08-16] MEDS: DUONEB INH (19:40)
[2025-08-16] MEDS: ARICEPT 5 MG PO (21:12)
[2025-08-17 00:45] LABS: APTT 97.5 Sec (23.4-35.0)
[2025-08-17 05:32] LABS: Hematocrit 28.0 % (37.0-47.0); Hemoglobin 8.4 g/dL (12.0-16.0); Mean Corp Hgb Conc. 30.0 g/dL (33.0-37.0); Mean Corpuscular Volume 84.6 fL (81.0-99.0); Nucleated Red Blood Cells % 0 %; Platelet Count 395 10^3/uL (130-400); Red Cell Dist. Width 18.5 % (11.5-14.5)
[2025-08-17] MEDS: DUONEB 3 ML INH ×2 (07:13→11:18)
[2025-08-17] MEDS: PULMICORT 0.5 MG INH (07:13)
[2025-08-17 07:45] VITALS: BP 141/69
--- NOTE | 2025-08-17 08:12 | W.PN.HOSP.TC ---
Today's Communication/Plan
-
Ambulatory pulse ox on room air
Discharge
Assessment / Plan
Assessment / Plan
Gen-awake, alert, NAD
HEENT-NC, AT, anicteric, clear oral mm
Neck-supple
CV-reg, no M, +S1/S2
Lungs-decreased breath sounds bilaterally
Abd-soft, NT, ND
Ext-no edema
Musculoskeletal-no cyanosis, clubbing
Skin-warm and dry
Neuro-grossly non-focal
Psych-calm, cooperative
Acute on chronic hypoxic respiratory failure -suspect multifactorial etiology. Has underlying COPD. Now having acute on chronic anemia. New finding of right lower lobe pulmonary embolism, acute versus chronic.
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
Oxygenation stable on 2 L nasal cannula, wean down as able.
Patient states that at baseline she only uses nocturnal oxygen but 2 weeks ago started using it during the daytime as well due to increasing shortness of breath.
She is a relatively poor historian and cannot remember details due to underlying dementia.
Check ambulatory pulse ox on room air, discussed with nursing.
Acute on chronic anemia -does have iron deficiency based on labs. Suspect GI bleed related anemia. Noted to have trace heme positive stool in the ER.
Received 1 dose of IV iron on 08/14.
Baseline hemoglobin appears to be 9-10 range.
Hemoglobin stable at 8.4 today, has had 2 units PRBC transfused so far this admission.
Acute GI bleed -etiology unclear. GI consulted. Maintain on clear liquid diet for now.
Previous EGD and colonoscopy were from 2016. Noted to have diverticulosis, polyp, hemorrhoids.
CT abdomen/pelvis ordered by GI service, notes small pancreatic calcifications suggestive of possible chronic pancreatitis. Small right inguinal hernia. Moderate to severe vascular calcification involving the common iliac arteries.
EGD done 08/16 shows erosive gastropathy with no bleeding and no stigmata of recent bleeding. Biopsies were done. 2 nonbleeding superficial well-healed duodenal ulcers with a clean base found in the duodenal bulb. 3 nonbleeding angioectasias in
the duodenum. Treated with APC.
Colonoscopy 08/16 showed three 4 to 7 mm polyps in the ascending colon, transverse colon, descending colon. Resection not attempted due to recent anticoagulation for pulmonary embolism. Diverticulosis in the descending and sigmoid colon's.
Multiple hyperplastic appearing polyps in the rectum. Not resected. Internal hemorrhoids.
GI service recommends twice daily Protonix for 8 weeks then once daily. Consider repeat colonoscopy as an outpatient once safe to temporarily discontinue anticoagulation.
Consideration of outpatient video capsule endoscopy if iron deficiency anemia persists. Will defer to GI as an outpatient.
Right lower lobe pulmonary embolism -suspected to be chronic on CT. Hold further anticoagulation in light of acute anemia, GI bleed.
Bilateral lower extremity Doppler ultrasound negative for DVT. Troponin negative.
Patient denies history of VTE. No known history of malignancy.
Echocardiogram completed, shows slight worsening of aortic regurgitation, no significant other changes compared to previous. Now read as moderate AR. LVEF 66%. RV size and systolic function normal.
Will transition to Eliquis today.
COPD without exacerbation -baseline uses nocturnal oxygen. Started using daytime oxygen 2 weeks ago.
No wheezing on exam today. Continue chronic prednisone 10 mg daily. Getting a nebulizer treatment currently.
Mixed hyperlipidemia -atorvastatin.
Essential hypertension -controlled.
Osteoporosis
Unspecified immunodeficiency -on chronic immunoglobulins.
Anxiety disorder
Dementia -likely Alzheimer's type. On chronic donepezil.
GERD
Full code
Dispo -medically stable for discharge home today with family. Outpatient follow-up. Discussed with nursing. Assess ambulatory pulse ox on room air prior to discharge.
35 minutes spent in discharge process.
Anticipated Discharge: Today
Subjective/Interval History
-
Date of Service: August 17, 2025
Patient seen and examined, no complaints.
Objective Data
-
Labs:
Laboratory Results
08/17/25 08/17/25
00:25 05:08
WBC 6.0
Hgb 8.4 L
Hct 28.0 L
Plt Count 395
APTT 97.5 H
Vital Signs:
Vital Signs
Temp Pulse Resp BP Pulse Ox
97.8 F 78 18 141/69 100
08/17/25 07:45 08/17/25 07:45 08/17/25 07:45 08/17/25 07:45 08/17/25 07:45
I&O
08/16/25 08/17/25 08/18/25
06:59 06:59 06:59
Intake Total 5170 / 5170 1320 / 1320
Balance 5170 / 5170 1320 / 1320
Review of Systems
-
History Source: Patient
All other systems: Reviewed and negative
--- NOTE | 2025-08-17 08:27 | W.DS.TRANS ---
DC Summary - Training Systems Officer
-
Discharge Instructions:
Discharge Diagnosis/Procedures Acute pulmonary embolism, iron deficiency anemia
, GI bleed
Diet Regular
Activity No restrictions
Driving Restrictions No driving
Bathing Restrictions None
Blood Work CBC in 1 week with your primary care doctor
Instructions:
Stand-Alone Forms:
Changes to Home Medications: Yes
Discharge Medications:
DC Medications w/original date entered in [employer]
alprazolam 1 mg tablet 1 mg PO BIDPRN PRN anxiety 04/27/12
amlodipine 2.5 mg tablet 2.5 mg PO DAILY Blood Pressure 09/24/24
atorvastatin 20 mg tablet 20 mg PO DAILY High Cholesterol 09/24/24
citalopram 10 mg tablet 10 mg PO DAILY Mental Health/Anxiety 09/24/24
denosumab 60 mg/mL subcutaneous syringe (Prolia) 60 mg SC [id number] Osteoporosis 09/24/24
fluticasone fur. 200 mcg-umeclid 62.5 mcg-vilant 25 mcg inhalat.powder (Trelegy Ellipta) 1 inh inhalation R DAILYPRN PRN sob 09/24/24
immun glob G 4 gram/20 mL (20 %)-prol-IgA 0-50 mcg/mL subcutaneous syr (Hizentra) 0 mg SC FR Autoimmune Disorder 09/24/24
ipratropium bromide 0.02 % solution for inhalation 2.5 ml inhalation R Q6HPRN PRN sob 09/24/24
lisinopril 40 mg tablet 40 mg PO DAILY Blood Pressure 09/24/24
donepezil 5 mg tablet 5 mg PO HS Alzheimer's 08/13/25
apixaban 5 mg (74 tabs) tablets in a dose pack (Eliquis DVT-PE Treat 30D Start) See Rx Instructions PO .COMPLEX #74 ea 08/17/25
budesonide 0.5 mg/2 mL suspension for nebulization 0.5 mg (2 mL) inhalation R BID #60 mL 08/17/25
pantoprazole 40 mg tablet,delayed release (Protonix) 40 mg PO BID #60 tabs 08/17/25
prednisone 10 mg tablet 10 mg PO DAILY #0 tabs 08/17/25
Home Medication Changes
Stop aspirin
Pending Results: No
[2025-08-17] MEDS: ELIQUIS 10 MG PO (09:04)
[2025-08-17] MEDS: DELTASONE 10 MG PO (09:08)
[2025-08-17] MEDS: ZOLOFT 25 MG PO (09:08)
[2025-08-17] MEDS: LIPITOR 20 MG PO (09:09)
[2025-08-17] MEDS: MIRALAX 17 GRAMS PO (09:09)
[2025-08-17] MEDS: PROTONIX IV 40 MG IV (09:10)
[2025-08-17] MEDS: NSS (PRESERVATIVE FREE) 10 ML IV (09:10)
--- NOTE | 2025-08-17 10:38 | CM ---
CM reviewed chart, patient seen bedside with spouse.
Patient for d/c today- to transport home.
Patient has home O2 at home.
IMM verbally reviewed, provided with copy, placed in chart.
CM will continue to follow for all d/c needs.
Plan; home no needs.
[2025-08-17 11:37] VITALS: BP 126/56
== END 2025-08-17 12:06 | disposition home or self-care (01) | DRG 175 ==
LOC: 4 WEST ACU 21:14
PROVIDERS: Student in an Organized Health Care Education/Training Program; ADMITTING PHYSICIAN Internal Medicine; ATTENDING PHYSICIAN Hospitalist; CONSULT PHYSICIAN Internal Medicine Gastroenterology; EMERGENCY PHYSICIAN Emergency Medicine; FAMILY PHYSICIAN Family Medicine; OTHER PHYSICIAN Internal Medicine
PROC: 30233N1 Transfusion of Nonautologous Red Blood Cells into Peripheral Vein, Percutaneous Approach (ICD-10-PCS; 2025-08-14)
PROC: 0W3P8ZZ Control Bleeding in Gastrointestinal Tract, Via Natural or Artificial Opening Endoscopic (ICD-10-PCS; 2025-08-16)
PROC: 0DB68ZX Excision of Stomach, Via Natural or Artificial Opening Endoscopic, Diagnostic (ICD-10-PCS; 2025-08-16)
PROC: 0DJD8ZZ Inspection of Lower Intestinal Tract, Via Natural or Artificial Opening Endoscopic (ICD-10-PCS; 2025-08-16)
DX: I26.99 Other pulmonary embolism without acute cor pulmonale (principal); J96.21 Acute and chronic respiratory failure with hypoxia; K31.811 Angiodysplasia of stomach and duodenum with bleeding; K26.4 Chronic or unspecified duodenal ulcer with hemorrhage; F03.A3 Unspecified dementia, mild, with mood disturbance; I10 Essential (primary) hypertension; D12.2 Benign neoplasm of ascending colon; D12.3 Benign neoplasm of transverse colon; D12.4 Benign neoplasm of descending colon; D12.8 Benign neoplasm of rectum; D50.9 Iron deficiency anemia, unspecified; J44.89 Other specified chronic obstructive pulmonary disease; I27.20 Pulmonary hypertension, unspecified; M81.0 Age-related osteoporosis without current pathological fracture; J43.9 Emphysema, unspecified; K64.4 Residual hemorrhoidal skin tags; E78.00 Pure hypercholesterolemia, unspecified; K21.9 Gastro-esophageal reflux disease without esophagitis; K22.70 Barrett's esophagus without dysplasia; K22.89 Other specified disease of esophagus; K31.89 Other diseases of stomach and duodenum; K57.30 Diverticulosis of large intestine without perforation or abscess without bleeding; Z11.52 Encounter for screening for COVID-19; Z79.52 Long term (current) use of systemic steroids; Z79.82 Long term (current) use of aspirin; Z79.899 Other long term (current) drug therapy; Z86.0100 Personal history of colon polyps, unspecified; Z87.891 Personal history of nicotine dependence; Z99.81 Dependence on supplemental oxygen
CPT/HCPCS: 71046; 71275; 74177; 80053; 82607; 82728; 82746; 83540; 83550; 83735; 84484; 85014; 85018; 85025; 85027; 85045; 85379; 85730; 86850; 86900; 86901; 86920; 87811; 88305; 88342; 93005; 93306; 93970; 94640; 96365; 96366; 97161; 97165; 99291; J2916; P9016; Q9967